=== PATIENT | female | born 1980 | race Caucasian/White ===

== ENCOUNTER 2017-10-12 14:46 | Emergency (ER) | payer MEDICAID, SELFPAY ==
[2017-10-12 14:48] VITALS: BP 77/32; PULSE 67; RESP 15; TEMP 36.4; O2SAT 97; BMI 36.6
[2017-10-12 15:17] VITALS: BP 101/70; PULSE 86; RESP 17; O2SAT 99
--- NOTE | 2017-10-12 15:45 | CT_ITS ---
CT Abdomen And Pelvis W/ Contrast INDICATION: N/V X COUPLE DAYS COMPARISON: None TECHNIQUE: Axial CT imaging of the abdomen and pelvis with IV contrast. Coronal and sagittal reformatted images. Radiation dose optimization technique applied. 100 mL of Isovue-300 were given intravenously. FINDINGS: Visualized lung bases are clear. The heart size is normal. The liver and spleen are normal in size and demonstrate homogeneous enhancement. The gallbladder is surgically absent. The kidneys enhance contrast symmetrically bilaterally and are without evidence of hydronephrosis. The bowel loops are nondistended. The appendix appears to be surgically absent. The distal colon is collapsed. The urinary bladder is unremarkable. There is no evidence of free air or free fluid. The osseous structures are age appropriate. CT/Abdomen/Pelvis W IV Cont ONLY IMPRESSION: No convincing CT evidence of acute intra-abdominal or pelvic pathology. at 1742 Reported and signed by: Frieda Mora MD Electronically Signed: Frieda Mora MD at 16:40 EST Tel , Service support ,
--- NOTE | 2017-10-12 15:49 | ED.DCSUM_ITS ---
- ER Visit Summary Date of Service: 10/12/17 Chief Complaint: Nausea and vomiting History of Present Illness: The patient is a 37 F who presents for 2 days of nausea, vomiting and foul-smelling flatus and stool. Patient's timeline given is very conflicting, with patient initially stating symptoms have been present for 2 days but then discussing treatment she did last week for these symptoms. She endorses hot flashes but denies fever. She has vomited 4-5 times total. She states her stool is very foul-smelling but it alternates between formed and loose. She states she was on Flagyl a few weeks ago for a UTI. She also endorses her ribs hurting on the left. She denies cough or congestion, no chest pain. History of diverticulitis, diabetes and hypothyroidism. Physical Examination: Vital signs: afebrile, hemodynamically stable, no hypoxia on room air General: well nourished, well developed, in no distress Skin: warm, dry, no rash, no pallor HEENT: normocephalic and atraumatic; PERRL, EOMI, moist mucous membranes Cardiovascular: regular rate and rhythm without murmurs, no peripheral edema, 2 + pulses all distal extremities Respiratory: No increased work of breathing, lungs are clear to auscultation bilaterally, no rales, rhonchi or wheezing Abdominal: Abdomen is soft, upper quadrant tenderness with normoactive bowel sounds, no guarding or rebound, no masses MSK: Moves all extremities, no deformities, normal strength Neuro: Awake and alert, oriented ?4. No facial droop, sensation and motor function intact and symmetric Test Results: Abnormal Lab Results 10/12/17 10/12/17 10/12/17 14:53 16:15 16:15 WBC 10.1 RBC 4.23 Hgb 13.5 Hct 38.5 MCV 91.0 MCH 31.9 MCHC 35.1 RDW 12.2 RDW Differential 39.8 Plt Count 319 MPV 10.7 Immature Gran % (Auto) 0.300 Neut % (Auto) 70.0 Lymph % (Auto) 18.2 L [place] % (Auto) 4.2 Eos % (Auto) 6.8 H Baso % (Auto) 0.5 Absolute Neuts (auto) 7.1 Absolute Lymphs (auto) 1.84 Total Counted Not Reportable Sodium 135 L Potassium 4.9 Chloride 103 Carbon Dioxide 21.0 Anion Gap 11 BUN 15 Creatinine 0.89 Estim Creat Clear Calc 69.11 Est GFR (MDRD) Af Amer 93 Est GFR (MDRD) Non-Af 76 BUN/Creatinine Ratio 16.9 Glucose 294 H Calcium 9.4 Total Bilirubin 0.50 AST 27 ALT 31 Alkaline Phosphatase 120 H Troponin I < 0.02 Total Protein 8.7 H Albumin 4.2 Globulin 4.5 H Albumin/Globulin Ratio 0.9 Lipase 135 Serum , Qual Urine Color Yellow Urine Clarity Cloudy Urine pH 5.0 Ur Specific [place] 1.015 Urine Protein 100 H Urine Glucose (UA) 1000 H Urine Ketones 15 H Urine Occult Blood 50 H Urine Nitrite Negative Urine Bilirubin Negative Urine Urobilinogen Normal Ur Leukocyte Esterase 500 H Urine RBC 0-5 SEEN Urine WBC 25-50 SEEN Ur Squamous Epith Cells 10-25 SEEN Urine Bacteria 1+ Urine Mucus 0 SEEN Urine Yeast 2+ 10/12/17 16:15 WBC RBC Hgb Hct MCV MCH MCHC RDW RDW Differential Plt Count MPV Immature Gran % (Auto) Neut % (Auto) Lymph % (Auto) [place] % (Auto) Eos % (Auto) Baso % (Auto) Absolute Neuts (auto) Absolute Lymphs (auto) Total Counted Sodium Potassium Chloride Carbon Dioxide Anion Gap BUN Creatinine Estim Creat Clear Calc Est GFR (MDRD) Af Amer Est GFR (MDRD) Non-Af BUN/Creatinine Ratio Glucose Calcium Total Bilirubin AST ALT Alkaline Phosphatase Troponin I Total Protein Albumin Globulin Albumin/Globulin Ratio Lipase Serum , Qual NEGATIVE Urine Color Urine Clarity Urine pH Ur Specific [place] Urine Protein Urine Glucose (UA) Urine Ketones Urine Occult Blood Urine Nitrite Urine Bilirubin Urine Urobilinogen Ur Leukocyte Esterase Urine RBC Urine WBC Ur Squamous Epith Cells Urine Bacteria Urine Mucus Urine Yeast Emergency Department Course and Treatment: Chart review shows patient had 3 visits in early September for the same complaint. At that time she was started on Flagyl for treatment of colitis. She was also put on Zofran at that time. C. difficile was ordered for this visit, but patient had no bowel movements in the emergency department. Because of LUQ pain, chest pain workup included. Workup showed no leukocytosis, hyperglycemia, no electrolyte derangements, no hepatic derangements, normal lipase, urine positive for infection. negative. Troponin negative. EKG showed no ischemic changes. CT of the abdomen pelvis showed no diverticulitis or other acute process. On reevaluation patient had some improvement. We discussed that there were no acute findings that warranted admission or surgical intervention at this time. Patient was given a prescription for nitrofurantoin for treatment of her UTI. She was also given prescription for Bentyl and Zofran. She was discharged home with return precautions. Treatment Plan: [] Disposition: [] Impression: UTI, abdominal pain This note was generated with [employer] dictation software. It may contain incorrect words, spelling, and punctuation that were not noted in review of the chart prior to signing ED Disposition - Plan for ED Patient: Disposition: Home or Assisted Living Chief Complaint: Nausea/Vomiting Instructions: ED Diet Vomiting Diarrhea, ED UTI Cystitis Female Prescriptions: Ondansetron [Zofran Odt] 4 mg PO Q8H PRN PRN #10 tab PRN Reason: Nausea Dicyclomine HCl [Bentyl] 20 mg PO TIDAC PRN #20 cap PRN Reason: abdominal pain Nitrofurantoin Macrocrystal [Nitrofurantoin] 100 mg PO BID #14 cap Referrals: [facility] Doctor,Out of [Primary Care Provider] - 3-5 Days if not improving Additional Instructions: Please use the Zofran as needed for nausea and the Bentyl for abdominal cramps. Take the antibiotic nitrofurantoin for your UTI. Take the entire prescription even if you feel better before it is gone. Your abdominal CT scan showed no abnormalities. Your labs were normal. Your glucose is a little high so please continue your insulin and diabetic regimen. If you have any worsening of your condition or any further concerns, please come back to the emergency department immediately for another evaluation.
[2017-10-12 16:26] LABS: Absolute Lymphocyte Count 1.84 X10^3/ul (0.83-4.51); Absolute Neutrophil Count 7.1 X10^3/uL (2.0-7.7); Basophil# 0.05 X10^3/uL; Basophil% 0.5 % (0-1); Eosinophil# 0.69 X10^3/uL; Eosinophils% 6.8 % (0-5); Hematocrit 38.5 % (37-47); Hemoglobin 13.5 g/dl (12.0-15.0); Lymphocyte # 1.84 X10^3/ul (4.0); Lymphocyte % 18.2 % (19-41); Mean Corp Hgb Conc 35.1 g/gl (32-36); Mean Corpuscular Hgb 31.9 pg (27.0-32.0); Mean Platelet Vol. 10.7 fl (6.2-12.0); Monocyte# 0.43 X10^3/uL; Monocyte% 4.2 % (0-10); Neutrophil # 7.08 X10^3/uL (2.7-7.7); Platelet Count 319 K/mm3 (150-450); RBC Distribution Width CV 12.2 % (11.6-14.6); RBC Distribution Width SD 39.8 fl (35.1-43.9); Red Blood Count 4.23 M/mm3 (4.2-5.4); White Blood Count 10.1 K/mm3 (4.4-11.0)
[2017-10-12] MEDS: 0.9% Normal Saline 1,000 ML 1000 ML IV (16:26)
[2017-10-12] MEDS: Ondansetron 4 MG/2 ML Vial IV (16:26)
[2017-10-12 16:31] LABS: POSITIVE COUNT NO; POSITIVE DIFFERENTIAL NO; POSITIVE MORPHOLOGY NO
[2017-10-12 16:52] LABS: ALB/GLOB Ratio 0.9 RATIO (0.9-2.4); AST(SGOT) 27 U/L (15-37); Alanine Aminotransfer ALT/SGPT 31 U/L (13-56); Albumin, Serum 4.2 g/dL (3.2-5.0); Alkaline Phosphatase 120 U/L (45-117); Anion Gap 11 (5-15); BUN 15 mg/dL (7-18); BUN/Creat Ratio 16.9 RATIO (10-20); Calcium,Total 9.4 mg/dL (8.5-10.1); Chloride 103 mmol/L (98-107); Creatinine, Serum 0.89 mg/dL (0.55-1.02); EST Glomerular Filtration Rate 76 mL/min (>60); Est Glom Filt Rate - Afr Amer 93 mL/min (>60); Estimated Creatinine Clearance 69.11 ml/min; Globulin 4.5 g/dL (2.2-4.2); Glucose 294 mg/dL (74-106); Lipase 135 U/L (73-393); Potassium 4.9 mmol/L (3.5-5.1); Pregnancy, Serum, hCG Quali. NEGATIVE Negative (0-9 Nonpreg); Protein, Total 8.7 g/dL (6.4-8.2); Sodium Level 135 mmol/L (136-145)
[2017-10-12 17:16] VITALS: BP 108/67; PULSE 84; RESP 16; O2SAT 98
--- NOTE | 2017-10-12 17:57 | NURSING ---
called lab regarding urine testing. lab located urine with white labels and to run at this time.
[2017-10-12 17:59] LABS: Mucous, Urine 0 SEEN /hpf (<or=2+)
--- NOTE | 2017-10-12 17:59 | EKG12_ITS ---
Test Reason : VOMITING Blood Pressure : / mmHG Vent. Rate : 088 BPM Atrial Rate : 088 BPM P-R Int : 162 ms QRS Dur : 080 ms QT Int : 394 ms P-R-T Axes : 030 -32 003 degrees QTc Int : 476 ms Normal sinus rhythm Left axis deviation Inferior infarct , age undetermined Anterior infarct , age undetermined Abnormal ECG Confirmed by ROHAN DELGADILLO, CHESTER ([id number]), editor in chief DION MCNULTY ([id number] on 10/15/2017 1:46:50 PM Referred By: MANUELA Confirmed By:CHESTER MADRIGAL MD
[2017-10-12 18:26] LABS: Color, Urine Yellow (Yellow); Glucose, Dipstick 1000 mg/dl (Normal); Ketone-Dipstick 15 mg/dl (Negative); Leukocyte Esterase-Dipstick 500 /ul (Negative); Nitrite-Dipstick Negative (Negative); Occult Blood-Urine 50 /ul (Negative); Protein-Dipstick 100 mg/dl (Negative); Specific Gravity, Urine 1.015 (1.002-1.030); Urine Bilirubin Dipstick Negative (Negative); Urine Clarity Cloudy (Clear); Urine Urobilinogen Normal (Normal)
[2017-10-12 18:34] LABS: Bacteria 1+ /hpf (None Seen); White Blood Cells 25-50 SEEN /hpf (0-5); Yeast-Urine 2+ /hpf (None Seen)
[2017-10-12 18:35] LABS: Red Blood Cells-Urine 0-5 SEEN /hpf (0-5); Squamous Epithelial Cells - UA 10-25 SEEN /hpf (5-10)
--- NOTE | 2017-10-12 18:59 | DCINST.ED_ITS ---
ED Disposition - Plan for ED Patient: Disposition: Home or Assisted Living Chief Complaint: Nausea/Vomiting Instructions: ED Diet Vomiting Diarrhea, ED UTI Cystitis Female Prescriptions: Ondansetron [Zofran Odt] 4 mg PO Q8H PRN PRN #10 tab PRN Reason: Nausea Dicyclomine HCl [Bentyl] 20 mg PO TIDAC PRN #20 cap PRN Reason: abdominal pain Nitrofurantoin Macrocrystal [Nitrofurantoin] 100 mg PO BID #14 cap Referrals: [facility] Doctor,Out of [Primary Care Provider] - 3-5 Days if not improving Additional Instructions: Please use the Zofran as needed for nausea and the Bentyl for abdominal cramps. Take the antibiotic nitrofurantoin for your UTI. Take the entire prescription even if you feel better before it is gone. Your abdominal CT scan showed no abnormalities. Your labs were normal. Your glucose is a little high so please continue your insulin and diabetic regimen. If you have any worsening of your condition or any further concerns, please come back to the emergency department immediately for another evaluation.
[2017-10-12 19:09] VITALS: BP 110/74; PULSE 79; RESP 18; TEMP 36.1; O2SAT 99
== END 2017-10-12 19:10 | disposition home or self-care (01) ==
PROVIDERS: Emergency Provider Emergency Medicine
DX: N39.0 Urinary tract infection, site not specified (principal); R10.10 Upper abdominal pain, unspecified; E11.9 Type 2 diabetes mellitus without complications; E03.9 Hypothyroidism, unspecified; E66.9 Obesity, unspecified; Z79.4 Long term (current) use of insulin; Z79.899 Other long term (current) drug therapy
CPT/HCPCS: 74176; 80053; 81001; 83690; 84484; 84703; 85025; 87086; 87088; 93005; 96361; 96374; 96375; 99284; J7030; Q9967; J2405

== ENCOUNTER 2017-11-09 19:30 | Emergency (ER) | payer MEDICAID, SELFPAY ==
[2017-11-09 19:31] VITALS: BP 103/66; PULSE 108; RESP 18; TEMP 37.4; O2SAT 97; BMI 41.5
[2017-11-09 21:11] LABS: Mucous, Urine 0 SEEN /hpf (<or=2+); Red Blood Cells-Urine 0 SEEN /hpf (0-5)
--- NOTE | 2017-11-09 21:26 | ED.VISSUMM ---
- ER Visit Summary Date of Service: 11/09/17 Chief Complaint: Low back pain and fever. I think I have another UTI History of Present Illness: The patient is a 37 F history of insulin-dependent diabetes and hypothyroidism. She has had prior UTIs. Also prior appendectomy and cholecystectomy. Patient states that he has had low back pain and a fever since last night. With dark urine. Associated nausea and vomiting. ?4. No diarrhea. Her last menstrual period was October 14. She denies any vaginal bleeding or discharge. She denies any cough, shortness of breath or chest pain. She denies any abdominal pain. Physical Examination: Vital signs are stable febrile. Temperature 99.3. Pulse ox 97% on room air no signs of hypoxia. She is in no distress. She does not look septic or toxic. H EENT exam unremarkable moist wheeze membranes. Neck nontender no lymphadenopathy. Lungs clear to auscultation bilaterally. Heart regular rhythm rate about 105 no murmur. Abdomen is soft and nontender. Normal bowel sounds no peritoneal signs. Nondistended. She is moving all 4 extremities are neurovascularly intact. Back exam there is no ecchymosis or bruising. No spine tenderness. She complains of low back pain. Neurologically she is awake alert without any focal motor or sensory deficits. Test Results: Urinalysis shows contamination but there are 50 to white cells and 1+ bacteria a urine culture will be sent this will be treated as UTI. They are also positive nitrates. Emergency Department Course and Treatment: Patient treated with 1 p.o. [place]. Treatment Plan: Allergies including penicillin and Bactrim and Cipro she will be placed on Keflex 500 4 times daily for 10 days. Follow-up with her primary care physician. Return if worse. Plenty of fluids and rest. Tylenol Motrin for pain. Disposition: discharge Impression: Acute UTI / Pyelonephritis This note was generated with [employer] dictation software. It may contain incorrect words, spelling, and punctuation that were not noted in review of the chart prior to signing ED Disposition - Plan for ED Patient: Chief Complaint: Complaint Referrals: [facility] Doctor,Out of [Primary Care Provider] -
[2017-11-09 21:36] LABS: Color, Urine Yellow (Yellow); Glucose, Dipstick 1000 mg/dl (Normal); Leukocyte Esterase-Dipstick 500 /ul (Negative); Nitrite-Dipstick Positive (Negative); Occult Blood-Urine 25 /ul (Negative); Protein-Dipstick 100 mg/dl (Negative); Urine Clarity Cloudy (Clear); Urine Urobilinogen 1 mg/dl (Normal)
[2017-11-09] MEDS: Ondansetron ODT 4 MG Tablet PO ×2 (21:41→22:40)
[2017-11-09 21:42] VITALS: PULSE 100; RESP 18; O2SAT 97
[2017-11-09 21:56] LABS: Urine Bilirubin Dipstick 1 mg/dL (Negative)
[2017-11-09] MEDS: HYDROcodone Bitartrate/Apap 5/325 Tablet PO ×2 (21:56→22:40)
[2017-11-09 21:58] LABS: Ketone-Dipstick 150 mg/dl (Negative); Squamous Epithelial Cells - UA 10-25 SEEN /hpf (5-10); White Blood Cells 50-100 SEEN /hpf (0-5)
[2017-11-09 21:59] LABS: Bacteria 1+ /hpf (None Seen); Yeast-Urine 1+ /hpf (None Seen)
--- NOTE | 2017-11-09 22:21 | ED.DEP ---
ED Disposition - Plan for ED Patient: Disposition: Home or Assisted Living Chief Complaint: Complaint Instructions: Discharge Instructions for Pyelonephritis, ED Kidney Infec Female Prescriptions: Cephalexin [Keflex] 500 mg PO Q6 #40 cap Referrals: [facility] Doctor,Out of [Primary Care Provider] - 3-5 Days Additional Instructions: Plenty fluids and rest. Tylenol and Motrin for pain. You have a urinary tract infection and may be early pyelonephritis meaning that the infection is in your kidneys. He will be written for an antibiotic called Keflex which will take 4 times a day for 10 days. A urine culture was sent. He will need to follow-up your primary care physician in next 3-5 days to ensure your improving. If you are feeling a lot worse need to return to the ER.
--- NOTE | 2017-11-09 22:25 | DCINST.ED_ITS ---
ED Disposition - Plan for ED Patient: Disposition: Home or Assisted Living Chief Complaint: Complaint Instructions: Discharge Instructions for Pyelonephritis, ED Kidney Infec Female Prescriptions: Cephalexin [Keflex] 500 mg PO Q6 #40 cap Referrals: [facility] Doctor,Out of [Primary Care Provider] - 3-5 Days Additional Instructions: Plenty fluids and rest. Tylenol and Motrin for pain. You have a urinary tract infection and may be early pyelonephritis meaning that the infection is in your kidneys. He will be written for an antibiotic called Keflex which will take 4 times a day for 10 days. A urine culture was sent. He will need to follow-up your primary care physician in next 3-5 days to ensure your improving. If you are feeling a lot worse need to return to the ER.
[2017-11-09] MEDS: Cephalexin 250 MG Capsule 500 MG PO (22:39)
[2017-11-09 22:45] VITALS: BP 104/72; PULSE 81; RESP 17; O2SAT 95
--- NOTE | 2017-11-14 15:56 | ED.RN ---
CALLED PT TO NOTIFY OF + URINE CX RESULTS AND NEED FOR ATB CHANGE. SPOKE WITH PT, WHOM STS THAT SHE IS STILL HAVING SOME DIFFICULTY WITH NAUSEA AND VOMITING. ENCOURAGED PT TO F/U WITH PCP, OR RETURN TO ED IF SHE NEEDS TO. DOXYCYCLINE 100 MG PO BID X7 DAYS CALLED INTO [facility], PER PT REQUEST.
== END 2017-11-09 22:54 | disposition home or self-care (01) ==
PROVIDERS: Emergency Provider Emergency Medicine
DX: N10 Acute pyelonephritis (principal); E11.9 Type 2 diabetes mellitus without complications; E03.9 Hypothyroidism, unspecified; Z87.440 Personal history of urinary (tract) infections; Z79.4 Long term (current) use of insulin; Z79.899 Other long term (current) drug therapy
CPT/HCPCS: 81001; 87077; 87086; 87088; 87186; 99283

== ENCOUNTER 2017-11-10 14:51 | Emergency (ER) | payer MEDICAID, SELFPAY ==
[2017-11-10 14:52] VITALS: BP 159/93; PULSE 106; RESP 16; TEMP 36.6; O2SAT 97; BMI 41.1
--- NOTE | 2017-11-10 16:42 | ED.DCSUM_ITS ---
- ER Visit Summary Date of Service: 11/10/17 Chief Complaint: Nausea and vomiting History of Present Illness: The patient is a 37 F who presents with nausea and vomiting that became worse today. Patient was seen here yesterday and was diagnosed with pyelonephritis. Patient states she was discharged home with antibiotics, anti-emetics, and analgesics. Patient was given a prescription for Keflex. Patient states she was given a dose here in the emergency department last night but vomited after she was discharged. Patient states she attempted to take an antibiotic at home and promptly vomited that back up as well. Patient states she took promethazine at home with no relief. Patient denies any fevers or chills. Patient denies any melena or hematochezia. Patient admits to some mild diarrhea. Patient states she has pain in her back and left upper quadrant there is a constant throbbing. Patient admits to subjective fevers. Physical Examination: Vital signs are stable. Patient is afebrile. Patient is in no acute distress. Oral mucosa is pink and moist. Heart was regular rate and rhythm. Lungs are clear and equal bilaterally. Abdomen is soft. Bowel sounds are normal. There is no tenderness, rebound, or guarding noted. Cranial nerves II through XII are intact. There are no focal motor or sensory deficits noted. Test Results: CBC and metabolic profile were obtained and were within normal limits with the exception of a elevated glucose of 370. Emergency Department Course and Treatment: She was given Zofran ODT. Patient was also given Keflex orally here. Patient was able to keep this down. Patient was given an injection of morphine here. Patient was instructed to follow-up with her primary care physician in 7-10 days. Patient understood and was agreeable with the plan. All questions were answered. Disposition: Discharge home Impression: Pyelonephritis This note was generated with [employer] dictation software. It may contain incorrect words, spelling, and punctuation that were not noted in review of the chart prior to signing ED Disposition - Plan for ED Patient: Disposition: Home or Assisted Living Chief Complaint: Nausea/Vomiting Diagnosis: Pyelonephritis Instructions: ED Nausea Vomiting Referrals: [facility] Doctor,Out of [Primary Care Provider] -
--- NOTE | 2017-11-10 17:20 | ED.RN ---
DELAY IN MEDICATING D/T DIFFICULT IV STICK.
[2017-11-10 17:49] LABS: ALB/GLOB Ratio 0.8 RATIO (0.9-2.4); AST(SGOT) 28 U/L (15-37); Alanine Aminotransfer ALT/SGPT 31 U/L (13-56); Albumin, Serum 3.5 g/dL (3.2-5.0); Alkaline Phosphatase 127 U/L (45-117); Anion Gap 11 (5-15); BUN 11 mg/dL (7-18); BUN/Creat Ratio 14.5 RATIO (10-20); Calcium,Total 8.8 mg/dL (8.5-10.1); Chloride 99 mmol/L (98-107); Creatinine, Serum 0.76 mg/dL (0.55-1.02); EST Glomerular Filtration Rate 91 mL/min (>60); Est Glom Filt Rate - Afr Amer 110 mL/min (>60); Estimated Creatinine Clearance 80.94 ml/min; Globulin 4.3 g/dL (2.2-4.2); Glucose 370 mg/dL (74-106); Lipase 244 U/L (73-393); Potassium 3.6 mmol/L (3.5-5.1); Protein, Total 7.8 g/dL (6.4-8.2); Sodium Level 134 mmol/L (136-145)
[2017-11-10] MEDS: Ondansetron ODT 4 MG Tablet PO (18:00)
[2017-11-10] MEDS: Cephalexin 250 MG Capsule 500 MG PO (18:00)
[2017-11-10 18:04] LABS: Absolute Lymphocyte Count 1.23 X10^3/ul (0.83-4.51); Absolute Neutrophil Count 5.1 X10^3/uL (2.0-7.7); Basophil# 0.03 X10^3/uL; Basophil% 0.4 % (0-1); Differential Indicated SCAN CRITERIA MET; Eosinophil# 0.13 X10^3/uL; Eosinophils% 1.8 % (0-5); Hematocrit 34.1 % (37-47); Hemoglobin 11.4 g/dl (12.0-15.0); Lymphocyte # 1.23 X10^3/ul (4.0); Lymphocyte % 17.4 % (19-41); Mean Corp Hgb Conc 33.4 g/gl (32-36); Mean Corpuscular Hgb 30.8 pg (27.0-32.0); Mean Corpuscular Volume 92.2 fL (81-99); Mean Platelet Vol. 10.2 fl (6.2-12.0); Monocyte# 0.58 X10^3/uL; Monocyte% 8.2 % (0-10); Neutrophil # 5.06 X10^3/uL (2.7-7.7); Neutrophil % 71.9 % (47-70); POSITIVE COUNT YES; POSITIVE DIFFERENTIAL NO; POSITIVE MORPHOLOGY NO; Platelet Count 254 K/mm3 (150-450); RBC Distribution Width CV 12.7 % (11.6-14.6); RBC Distribution Width SD 42.7 fl (35.1-43.9); White Blood Count 7.1 K/mm3 (4.4-11.0)
--- NOTE | 2017-11-10 18:05 | ED.RN ---
PT HAS HAD NO N/V WHILE HERE IN ED.
[2017-11-10 18:20] LABS: Differential Comment SCANNED
[2017-11-10 18:57] VITALS: BP 131/77; PULSE 69; RESP 15; O2SAT 98
== END 2017-11-10 18:57 | disposition home or self-care (01) ==
PROVIDERS: Emergency Provider Emergency Medicine
DX: N12 Tubulo-interstitial nephritis, not specified as acute or chronic (principal); R11.2 Nausea with vomiting, unspecified; E11.9 Type 2 diabetes mellitus without complications; E03.9 Hypothyroidism, unspecified; Z79.2 Long term (current) use of antibiotics; Z79.4 Long term (current) use of insulin; Z79.899 Other long term (current) drug therapy
CPT/HCPCS: 80053; 83690; 85025; 96372; 99282; J7030; A4216

== ENCOUNTER 2017-11-16 17:36 | Inpatient (IN) | payer MEDICAID, SELFPAY ==
[2017-11-16 17:37] VITALS: BP 170/115; PULSE 118; RESP 16; TEMP 36.7; O2SAT 97; BMI 41.1
--- NOTE | 2017-11-16 18:06 | CT_ITS ---
STUDY: CT ABDOMEN AND PELVIS WITHOUT CONTRAST REASON FOR EXAM: Female, 37 years old. Nausea and vomiting RADIATION DOSAGE (If Supplied By Facility): CTDIvol = ( 23.45 ) mGy, DLP = ( 1300.60 ) mGycm TECHNIQUE: Transaxial images were obtained from the dome of the diaphragm to the symphysis pubis without oral contrast, and without intravenous contrast. Sagittal and coronal images were reconstructed. Individualized dose optimization techniques were used for this CT. COMPARISON: Previous study of October 12, 2017 FINDINGS: The visualized lung bases are unremarkable. The visualized portions of the heart are within normal limits. Normal liver. There are surgical clips in the gallbladder fossa consistent with a prior cholecystectomy. Normal spleen. Normal pancreas. Normal bilateral adrenal glands. Normal right kidney. Normal left kidney. There is a small hiatal hernia. Normal small intestine. Normal colon. There are surgical clips in the region of the appendix consistent with a prior appendectomy. Normal abdominal aorta. The IVC is decreased in caliber and flattened which may be indicative of volume depletion. Normal retroperitoneum. Normal urinary bladder. The uterus is unremarkable. There is a small fat-containing structure of the right adnexa measuring 1.7 cm consistent with ovarian dermoid. There is a small umbilical hernia containing fat. Orthopedic hardware is seen in the left hemipelvis. The visualized thoracolumbar spine appears normal. CT/Abdomen/Pelvis without Cont IMPRESSION: 1. Status post cholecystectomy and appendectomy. 2. The IVC is decreased in caliber and flattened which may be indicative of volume depletion. 3. There is a fat-containing structure in the right adnexa measuring 1.7 cm consistent with an ovarian dermoid. 4. Small fat-containing umbilical hernia. 5. Orthopedic hardware seen in the left hemipelvis. 6. There is no free intra-abdominal or intrapelvic air, fluid, or inflammatory process. Electronically Signed: Brennon Barney MD at 20:28 EDT , Service support ,
[2017-11-16 18:40] LABS: Mucous, Urine 0 SEEN /hpf (<or=2+)
[2017-11-16 18:41] LABS: Color, Urine Yellow (Yellow); Glucose, Dipstick 1000 mg/dl (Normal); Leukocyte Esterase-Dipstick 100 /ul (Negative); Nitrite-Dipstick Negative (Negative); Occult Blood-Urine 150 /ul (Negative); Protein-Dipstick 500 mg/dl (Negative); Specific Gravity, Urine 1.015 (1.002-1.030); Urine Bilirubin Dipstick Negative (Negative); Urine Clarity Sl. Cloudy (Clear); Urine Urobilinogen Normal (Normal)
[2017-11-16 18:48] LABS: Ketone-Dipstick 150 mg/dl (Negative)
[2017-11-16 18:51] LABS: Red Blood Cells-Urine 5-10 SEEN /hpf (0-5); White Blood Cells 5-10 SEEN /hpf (0-5)
[2017-11-16 18:52] LABS: Amorphous Sediment 1+ URATE; Bacteria RARE /hpf (None Seen); Squamous Epithelial Cells - UA 10-25 SEEN /hpf (5-10); Yeast-Urine 1+ /hpf (None Seen)
[2017-11-16 19:43] VITALS: BP 156/94; PULSE 101; O2SAT 97
[2017-11-16 20:11] LABS: Absolute Lymphocyte Count 1.18 X10^3/ul (0.83-4.51); Absolute Neutrophil Count 10.1 X10^3/uL (2.0-7.7); Basophil# 0.03 X10^3/uL; Basophil% 0.3 % (0-1); Eosinophil# 0.04 X10^3/uL; Eosinophils% 0.3 % (0-5); Hematocrit 38.1 % (37-47); Lymphocyte # 1.18 X10^3/ul (4.0); Mean Corp Hgb Conc 34.1 g/gl (32-36); Mean Corpuscular Hgb 31.4 pg (27.0-32.0); Monocyte# 0.41 X10^3/uL; Monocyte% 3.5 % (0-10); Neutrophil # 10.08 X10^3/uL (2.7-7.7); Neutrophil % 85.2 % (47-70); Platelet Count 416 K/mm3 (150-450); RBC Distribution Width CV 13.2 % (11.6-14.6); RBC Distribution Width SD 43.6 fl (35.1-43.9); Red Blood Count 4.14 M/mm3 (4.2-5.4); White Blood Count 11.8 K/mm3 (4.4-11.0)
[2017-11-16 20:12] LABS: POSITIVE COUNT NO; POSITIVE DIFFERENTIAL NO; POSITIVE MORPHOLOGY NO
[2017-11-16] MEDS: 0.9% Normal Saline 1,000 ML 150 ML IV (20:26)
[2017-11-16] MEDS: Ondansetron 4 MG/2 ML Vial IV (20:27)
[2017-11-16 20:33] LABS: Anion Gap 16 (5-15); BUN 9 mg/dL (7-18); Potassium 4.6 mmol/L (3.5-5.1)
[2017-11-16 20:50] LABS: BUN/Creat Ratio 17.9 RATIO (10-20); Chloride 108 mmol/L (98-107); EST Glomerular Filtration Rate 147 mL/min (>60); Est Glom Filt Rate - Afr Amer 177 mL/min (>60); Estimated Creatinine Clearance 123.02 ml/min; Glucose 237 mg/dL (74-106); Sodium Level 141 mmol/L (136-145)
--- NOTE | 2017-11-16 21:31 | ED.DCSUM_ITS ---
- ER Visit Summary Date of Service: 11/16/17 Chief Complaint: Nausea and vomiting, UTI History of Present Illness: The patient is a 37 F who was diagnosed with UTI and pyelonephritis last week. Patient reports nausea and vomiting since that time states she has not been able to keep anything down including her antibiotics. Per review of records patient was started on Keflex and then switched to doxycycline after culture returned. Patient states that even after switching antibiotics she has been vomiting and cannot keep the medicine down. She complains of left flank pain. She has had prior appendectomy and cholecystectomy. She reports a bit of fever but was not measured. Physical Examination: Vital signs on arrival include blood pressure 170/115, temperature 98.1, heart rate 118, respiratory rate 16, pulse ox 97% on room air. Patient is obese female sitting upright in bed. She is nontoxic appearing. Head neck examination is grossly unremarkable. Heart is tachycardic and regular. Lung sounds are grossly clear. Abdomen is soft, obese, with mild diffuse tenderness throughout. There is no guarding or rebound. Hypoactive bowel sounds are noted. Test Results: CBC was a white count 11.8 with 85% neutrophils. Chemistry studies reveal glucose of 237. Her bicarb is low at 20. Urinalysis shows 150 ketones, 5-10 white blood cells, 5-10 red blood cells, 10-25 epithelial cells, and rare bacteria. CT flank reveals chronic changes. IVC appears to be decreased in caliber and flattened which may be indicative of volume depletion. Emergency Department Course and Treatment: Patient is an extremely difficult IV stick. IV was established by nursing and the patient's right wrist but blood was not able to be drawn. Lab presented and was able to only get CBC and BMP from her fingers. The other ER physician working [facility] was able to establish a 20-gauge line in the left forearm under ultrasound guidance. One set of blood cultures were able to be drawn from this. She was given morphine, Phenergan, Zofran, and IV fluids. Urine culture was also sent. At this time I feel the patient needs IV hydration and nausea control. She will be given a dose of IV Levaquin as she has tolerated this antibiotic in the past and urine culture shows her Klebsiella infection is sensitive to this. Treatment Plan: [] Disposition: Admit Impression: 1. Flank pain with partially treated pyelonephritis 2. Vomiting, improved This note was generated with [employer] dictation software. It may contain incorrect words, spelling, and punctuation that were not noted in review of the chart prior to signing ED Disposition - Plan for ED Patient: Chief Complaint: Nausea/Vomiting Referrals: Care Physician,No Primary [Primary Care Provider] -
--- NOTE | 2017-11-16 21:42 | PCM.HP.STD ---
Problem List (1) Hip pain, chronic Status: Chronic Qualifiers: Laterality: left Qualified Code(s): M25.552 - Pain in left hip; G89.29 - Other chronic pain (2) Chronic pain Status: Chronic Qualifiers: Chronic pain type: other chronic postprocedural pain Qualified Code(s): G89.28 - Other chronic postprocedural pain (3) Morbid obesity with BMI of 40.0-44.9, adult Status: Chronic (4) Hypothyroidism Status: Chronic Qualifiers: Hypothyroidism type: unspecified Qualified Code(s): E03.9 - Hypothyroidism, unspecified (5) Diabetes mellitus, type II Status: Chronic Qualifiers: Diabetes mellitus intermediate designer insulin use: with intermediate designer use Diabetes mellitus complication status: with unspecified complications Qualified Code(s): E11.8 - Type 2 diabetes mellitus with unspecified complications; Z79.4 - long term care administrator (current) use of insulin (6) UTI (urinary tract infection) Status: Acute (7) DKA (diabetic ketoacidoses) Status: Chronic Qualifiers: Diabetes mellitus type: type 2 Diabetes mellitus complication detail: without coma Qualified Code(s): E11.10 - Type 2 diabetes mellitus with ketoacidosis without coma History of Present Illness Date of Admission: 11/16/17 Chief Complaint: Intractable N/V, recent UTI, unable to take her medications, not taking her insulin The patient is a 37 y/o F w/ PMHx: Morbid Obesity, Chronic Hip Pain, Diabetes mellitus type II, Hypothyroidism, Frequent UTIs who presents to the [facility] ED on 11/16/17 with recent Dx Klebisella UTI/Suspected Pyelonephritis with attempted outpatient treatment oral abx therapy; however, unable to tolerate her medications and noted to have not been able to complete regimen with ongoing nausea, emesis and self admitted failure to take her insulin x 2-3 days secondary to poor oral intake in addition to subjective fevers. In the ED work-up included T 98.1, HR 118, BP 170/115, RR 16, 97% on RA, CBC w/ WBC 11.8, Hgb 13, Plts 416 with L shift, BMP w/ Chl 108, CO2 20, AG 16, BUN/Cr 9/0.50, glucose 237, UA poor sample w/ notable SEC, protein 500, glucose 1000, ketones 150, LE 100, repeat UCx pending although poor sample, Bld Cx per ED pending, CT A/P evident status post cholecystectomy and appendectomy, IVC decreased in caliber and flattened, fat-containing structure right adnexa measuring 1.7 cm consistent with ovarian dermoid, small fat-containing umbilical hernia, left hemipelvis orthopedic hardware, no acute process otherwise noted. In the ED patient administered NS, phenergan, zofran, GI cocktail, morphine, levaquin. Past Medical History Past Medical History (Chronic Problems): Chronic Problems Morbid obesity with BMI of 40.0-44.9, adult (Chronic) Hypothyroidism (Chronic) Diabetes mellitus, type II (Chronic) DKA (diabetic ketoacidoses) (Chronic) Hip pain, chronic (Chronic) Chronic pain (Chronic) Allergies amoxicillin Allergy (Verified 11/16/17 17:40) Hives ciprofloxacin [From Cipro] Allergy (Verified 11/16/17 17:40) Hives ciprofloxacin HCl [From Cipro] Allergy (Verified 11/16/17 17:40) Hives cyclobenzaprine HCl [From Flexeril] Allergy (Verified 11/16/17 17:40) Hives egg Allergy (Verified 11/16/17 17:40) Anaphylaxis WHEN MIXED IN MEDICATION ONLY PER PT REPORT naproxen [From Naprosyn] Allergy (Verified 11/16/17 17:40) Hives tramadol Allergy (Verified 11/16/17 17:40) Rash ketorolac tromethamine [From Toradol] Adverse Reaction (Verified 11/16/17 17:40) Other sulfamethoxazole [From Bactrim] Adverse Reaction (Verified 11/16/17 17:40) Hives trimethoprim [From Bactrim] Adverse Reaction (Verified 11/16/17 17:40) Hives Home Medications: Ambulatory Orders Medication Instructions Recorded Levothyroxine [Synthroid] 125 mcg PO DAILY 10/05/15 Insulin Aspart [Novolog Flexpen] 6 unit SC TID 02/04/16 Insulin Detemir [Levemir (BKC)] 20 units SC QHS 02/04/16 Tizanidine HCl [Zanaflex] 4 mg PO Q8H 10/12/17 ProMETHAzine [Phenergan] 25 mg PO Q6H PRN PRN 11/10/17 ProMETHAzine [Phenergan] 25 mg RECTAL Q6H PRN PRN 11/10/17 Surgical History: appendectomy, cholecystectomy, total hip arthroplasty - left, - - BL eye surgery, D+C. 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 Denies: Chills, Weight Change HEENT: Denies: Head Aches, Sinus Congestion, Sinus Drainage Cardiovascular: Denies: Chest Pain, Palpitations Respiratory: Denies: Cough, Shortness of breath at rest, Sputum production Gastrointestinal: Reports: Abdominal Pain, Nausea, Vomiting Genitourinary: Denies: Dysuria Musculoskeletal: Reports: Back Pain, Joint stiffness, Joint swelling, Joint Tenderness. Denies: Joint Pain Skin: Denies: Rash, Wounds Neurological: Denies: Numbness, Tingling, Focal weakness Psychiatric: Denies: Anxiety, Depression, Homicidal Ideations, Suicidal Ideations Hematologic/ Lymphatic: Denies: Easy Bruising, Easy Bleeding VTE Information - Inpt Only VTE Present on Admission: No VTE Mechan Device Prophylaxis: SCD's VTE Pharm Prophylaxis ordered?: Yes Patient Problems: Active and Suspected Problems UTI (urinary tract infection) (Acute) Subjective: Seated upright in the ED bed, fatigued appearing, NAD otherwise. Objective: Physical Examination: General: awake, alert, oriented x 3 and cooperative, seated upright in the ED bed in no apparent distress. Skin: normal color, turgor, no icterus, cyanosis. HEENT: AT/NC, EOMI, PERRLA, dry MM, no carotid bruits or JVD noted, facial hair present. Lungs: CTA bilaterally, moderate effort, mild decrease BL bases, no rales, ronchi or wheezing. Heart: Tachycardic with regular rhythm; no gallop, rub audible. Abdomen: soft, morbidly obese, mild L sided discomfort to palpation and L CVA TTP, ND, normal BS, no HSM although difficult assessment given habitus. Extremities: no cyanosis, clubbing, or edema. Neurological: patient awake, alert, oriented x 3; cognitive function intact; pupils equally reactive to light and accomodation; cranial nerves II-XII grossly normal, moving all 4 extremities, no focal deficits, strength moderately to severely globally decreased secondary to acute presentation. Psychiatric: affect appears fatigued, no acute evidence of depressive or anxiety feelings. - Physical Exam Vital Signs Temp Pulse Resp BP Pulse Ox 98.1 F 101 H 16 156/94 H 97 11/16/17 17:37 11/16/17 19:43 11/16/17 17:37 11/16/17 19:43 11/16/17 19:43 Oxygen Delivery Method Room Air Weight: 225 lb Body Mass Index (BMI) 41.1 Laboratory Tests Past 24 Hrs 11/16/17 11/16/17 11/16/17 18:30 19:54 19:54 WBC 11.8 H RBC 4.14 L Hgb 13.0 Hct 38.1 MCV 92.0 MCH 31.4 MCHC 34.1 RDW 13.2 RDW Differential 43.6 Plt Count 416 MPV 10.0 Immature Gran % (Auto) 0.700 Neut % (Auto) 85.2 H Lymph % (Auto) 10.0 L [place] % (Auto) 3.5 Eos % (Auto) 0.3 Baso % (Auto) 0.3 Absolute Neuts (auto) 10.1 H Absolute Lymphs (auto) 1.18 Total Counted Not Reportable Sodium 141 Potassium 4.6 Chloride 108 H Carbon Dioxide 20.0 L Anion Gap 16 H BUN 9 Creatinine 0.50 L Estim Creat Clear Calc 123.02 Est GFR (MDRD) Af Amer 177 Est GFR (MDRD) Non-Af 147 BUN/Creatinine Ratio 17.9 Glucose 237 H Calcium 9.0 Urine Color Yellow Urine Clarity Sl. Cloudy Urine pH 6.0 Ur Specific [place] 1.015 Urine Protein 500 H Urine Glucose (UA) 1000 H Urine Ketones 150 H Urine Occult Blood 150 H Urine Nitrite Negative Urine Bilirubin Negative Urine Urobilinogen Normal Ur Leukocyte Esterase 100 H Urine RBC 5-10 SEEN Urine WBC 5-10 SEEN Ur Squamous Epith Cells 10-25 SEEN Amorphous Sediment 1+ URATE Urine Bacteria RARE Urine Mucus 0 SEEN Urine Yeast 1+ Assessment/Plan Active and Suspected Problems UTI (urinary tract infection) (Acute) The patient is a 37 y/o F w/ PMHx: Morbid Obesity, Chronic Hip Pain, Diabetes mellitus type II, Hypothyroidism, Frequent UTIs who presents to the [facility] ED on 11/16/17 with recent Dx Giorgi UTI/Suspected Pyelonephritis with attempted outpatient treatment oral abx therapy; however, unable to tolerate her medications and noted to have not been able to complete regimen with ongoing nausea, emesis and self admitted failure to take her insulin x 2-3 days secondary to poor oral intake in addition to subjective fevers. (1) Acute Klebsiella Pneumoniae UTI (Recent ED visit pyelonephritis, no evidence on 11/16/17 CT A/P): UA upon ED evaluation poor sample, UCx 11/09/17 as noted, continue IVFs, monitor I/Os, continue IV Levaquin given allergies and sensitivities until able to transition to oral regimen. Repeat Bld cx x 2 obtained in the ED. (2) Mild DKA w/ Diabetes mellitus type II: Admission BMP w/ glucose 200s, AG minimally elevated 16, UA w/ + ketones, recently not taking her insulin x 2-3 days. Given mild, will maintain NPO status, will administer 10 u IV insulin x 1, obtain serial BMP x 2, continue aggressive IVFs, obtain q 4 hour accu checks, obtain mag and phos, transition to home regimen, if worsens would initiate insulin drip, nutrition consultation. Encouraged diet and insulin regimen compliance. (3) Hypothyroidism: Continue home synthroid regimen. (4) Morbid Obesity: Weight loss and lifestyle changes encouraged, nutrition consulted. (5) Chronic Pain Syndrome: Notes chronic L hip pain, not on regimen outpatient, encouraged frequent position changes, fall precautions. (6) GERD: Famotidine. (7) DVT Prophylaxis: SCDs, lovenox. Code Visit Inpatient E&M: 92328 Init Hosp L3
--- NOTE | 2017-11-16 21:53 | HP.PCM_ITS ---
Problem List (1) Hip pain, chronic Status: Chronic Qualifiers: Laterality: left Qualified Code(s): M25.552 - Pain in left hip; G89.29 - Other chronic pain (2) Chronic pain Status: Chronic Qualifiers: Chronic pain type: other chronic postprocedural pain Qualified Code(s): G89.28 - Other chronic postprocedural pain (3) Morbid obesity with BMI of 40.0-44.9, adult Status: Chronic (4) Hypothyroidism Status: Chronic Qualifiers: Hypothyroidism type: unspecified Qualified Code(s): E03.9 - Hypothyroidism , unspecified (5) Diabetes mellitus, type II Status: Chronic Qualifiers: Diabetes mellitus fdc insulin use: with termite exterminator use Diabetes mellitus complication status: with unspecified complications Qualified Code(s) : E11.8 - Type 2 diabetes mellitus with unspecified complications; Z79.4 - termite exterminator (current) use of insulin (6) UTI (urinary tract infection) Status: Acute (7) DKA (diabetic ketoacidoses) Status: Chronic Qualifiers: Diabetes mellitus type: type 2 Diabetes mellitus complication detail: without coma Qualified Code(s): E11.10 - Type 2 diabetes mellitus with ketoacidosis without coma History of Present Illness Date of Admission: 11/16/17 Chief Complaint: Intractable N/V, recent UTI, unable to take her medications, not taking her insulin The patient is a 37 y/o F w/ PMHx: Morbid Obesity, Chronic Hip Pain, Diabetes mellitus type II, Hypothyroidism, Frequent UTIs who presents to the [facility] ED on with recent Dx Klebisella UTI/Suspected Pyelonephritis with attempted outpatient treatment oral abx therapy; however, unable to tolerate her medications and noted to have not been able to complete regimen with ongoing nausea, emesis and self admitted failure to take her insulin x 2-3 days secondary to poor oral intake in addition to subjective fevers. In the ED work- up included T 98.1, HR 118, BP 170/115, RR 16, 97% on RA, CBC w/ WBC 11.8, Hgb 13, Plts 416 with L shift, BMP w/ Chl 108, CO2 20, AG 16, BUN/Cr 9/0.50, glucose 237, UA poor sample w/ notable SEC, protein 500, glucose 1000, ketones 150, LE 100, repeat UCx pending although poor sample, Bld Cx per ED pending, CT A/P evident status post cholecystectomy and appendectomy, IVC decreased in caliber and flattened, fat-containing structure right adnexa measuring 1.7 cm consistent with ovarian dermoid, small fat-containing umbilical hernia, left hemipelvis orthopedic hardware, no acute process otherwise noted. In the ED patient administered NS, phenergan, zofran, GI cocktail, morphine, levaquin. Past Medical History Past Medical History (Chronic Problems): Chronic Problems Morbid obesity with BMI of 40.0-44.9, adult (Chronic) Hypothyroidism (Chronic) Diabetes mellitus, type II (Chronic) DKA (diabetic ketoacidoses) (Chronic) Hip pain, chronic (Chronic) Chronic pain (Chronic) Allergies amoxicillin Allergy (Verified 11/16/17 17:40) Hives ciprofloxacin [From Cipro] Allergy (Verified 11/16/17 17:40) Hives ciprofloxacin HCl [From Cipro] Allergy (Verified 11/16/17 17:40) Hives cyclobenzaprine HCl [From Flexeril] Allergy (Verified 11/16/17 17:40) Hives egg Allergy (Verified 11/16/17 17:40) Anaphylaxis WHEN MIXED IN MEDICATION ONLY PER PT REPORT naproxen [From Naprosyn] Allergy (Verified 11/16/17 17:40) Hives tramadol Allergy (Verified 11/16/17 17:40) Rash ketorolac tromethamine [From Toradol] Adverse Reaction (Verified 11/16/17 17:40) Other sulfamethoxazole [From Bactrim] Adverse Reaction (Verified 11/16/17 17:40) Hives trimethoprim [From Bactrim] Adverse Reaction (Verified 11/16/17 17:40) Hives Home Medications: Ambulatory Orders Medication Instructions Recorded Levothyroxine [Synthroid] 125 mcg PO DAILY 10/05/15 Insulin Aspart [Novolog Flexpen] 6 unit SC TID 02/04/16 Insulin Detemir [Levemir (BKC)] 20 units SC QHS 02/04/16 Tizanidine HCl [Zanaflex] 4 mg PO Q8H 10/12/17 ProMETHAzine [Phenergan] 25 mg PO Q6H PRN PRN 11/10/17 ProMETHAzine [Phenergan] 25 mg RECTAL Q6H PRN PRN 11/10/17 Surgical History: appendectomy, cholecystectomy, total hip arthroplasty - left, - - BL eye surgery, D+C. 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 Denies: Chills, Weight Change HEENT: Denies: Head Aches, Sinus Congestion, Sinus Drainage Cardiovascular: Denies: Chest Pain, Palpitations Respiratory: Denies: Cough, Shortness of breath at rest, Sputum production Gastrointestinal: Reports: Abdominal Pain, Nausea, Vomiting Genitourinary: Denies: Dysuria Musculoskeletal: Reports: Back Pain, Joint stiffness, Joint swelling, Joint Tenderness. Denies: Joint Pain Skin: Denies: Rash, Wounds Neurological: Denies: Numbness, Tingling, Focal weakness Psychiatric: Denies: Anxiety, Depression, Homicidal Ideations, Suicidal Ideations Hematologic/ Lymphatic: Denies: Easy Bruising, Easy Bleeding VTE Information - Inpt Only VTE Present on Admission: No VTE Mechan Device Prophylaxis: SCD's VTE Pharm Prophylaxis ordered?: Yes Patient Problems: Active and Suspected Problems UTI (urinary tract infection) (Acute) Subjective: Seated upright in the ED bed, fatigued appearing, NAD otherwise. Objective: Physical Examination: General: awake, alert, oriented x 3 and cooperative, seated upright in the ED bed in no apparent distress. Skin: normal color, turgor, no icterus, cyanosis. HEENT: AT/NC, EOMI, PERRLA, dry MM, no carotid bruits or JVD noted, facial hair present. Lungs: CTA bilaterally, moderate effort, mild decrease BL bases, no rales, ronchi or wheezing. Heart: Tachycardic with regular rhythm; no gallop, rub audible. Abdomen: soft, morbidly obese, mild L sided discomfort to palpation and L CVA TTP, ND, normal BS, no HSM although difficult assessment given habitus. Extremities: no cyanosis, clubbing, or edema. Neurological: patient awake, alert, oriented x 3; cognitive function intact; pupils equally reactive to light and accomodation; cranial nerves II-XII grossly normal, moving all 4 extremities, no focal deficits, strength moderately to severely globally decreased secondary to acute presentation. Psychiatric: affect appears fatigued, no acute evidence of depressive or anxiety feelings. - Physical Exam Vital Signs Temp Pulse Resp BP Pulse Ox 98.1 F 101 H 16 156/94 H 97 11/16/17 17:37 11/16/17 19:43 11/16/17 17:37 11/16/17 19:43 11/16/17 19:43 Oxygen Delivery Method Room Air Weight: 225 lb Body Mass Index (BMI) 41.1 Laboratory Tests Past 24 Hrs 11/16/17 11/16/17 11/16/17 18:30 19:54 19:54 WBC 11.8 H RBC 4.14 L Hgb 13.0 Hct 38.1 MCV 92.0 MCH 31.4 MCHC 34.1 RDW 13.2 RDW Differential 43.6 Plt Count 416 MPV 10.0 Immature Gran % (Auto) 0.700 Neut % (Auto) 85.2 H Lymph % (Auto) 10.0 L [place] % (Auto) 3.5 Eos % (Auto) 0.3 Baso % (Auto) 0.3 Absolute Neuts (auto) 10.1 H Absolute Lymphs (auto) 1.18 Total Counted Not Reportable Sodium 141 Potassium 4.6 Chloride 108 H Carbon Dioxide 20.0 L Anion Gap 16 H BUN 9 Creatinine 0.50 L Estim Creat Clear Calc 123.02 Est GFR (MDRD) Af Amer 177 Est GFR (MDRD) Non-Af 147 BUN/Creatinine Ratio 17.9 Glucose 237 H Calcium 9.0 Urine Color Yellow Urine Clarity Sl. Cloudy Urine pH 6.0 Ur Specific [place] 1.015 Urine Protein 500 H Urine Glucose (UA) 1000 H Urine Ketones 150 H Urine Occult Blood 150 H Urine Nitrite Negative Urine Bilirubin Negative Urine Urobilinogen Normal Ur Leukocyte Esterase 100 H Urine RBC 5-10 SEEN Urine WBC 5-10 SEEN Ur Squamous Epith Cells 10-25 SEEN Amorphous Sediment 1+ URATE Urine Bacteria RARE Urine Mucus 0 SEEN Urine Yeast 1+ Assessment/Plan Active and Suspected Problems UTI (urinary tract infection) (Acute) The patient is a 37 y/o F w/ PMHx: Morbid Obesity, Chronic Hip Pain, Diabetes mellitus type II, Hypothyroidism, Frequent UTIs who presents to the [facility] ED on with recent Dx Giorgi UTI/Suspected Pyelonephritis with attempted outpatient treatment oral abx therapy; however, unable to tolerate her medications and noted to have not been able to complete regimen with ongoing nausea, emesis and self admitted failure to take her insulin x 2-3 days secondary to poor oral intake in addition to subjective fevers. (1) Acute Klebsiella Pneumoniae UTI (Recent ED visit pyelonephritis, no evidence on 11/16/17 CT A/P): UA upon ED evaluation poor sample, UCx 11/09/17 as noted, continue IVFs, monitor I/Os, continue IV Levaquin given allergies and sensitivities until able to transition to oral regimen. Repeat Bld cx x 2 obtained in the ED. (2) Mild DKA w/ Diabetes mellitus type II: Admission BMP w/ glucose 200s, AG minimally elevated 16, UA w/ + ketones, recently not taking her insulin x 2-3 days. Given mild, will maintain NPO status, will administer 10 u IV insulin x 1 , obtain serial BMP x 2, continue aggressive IVFs, obtain q 4 hour accu checks, obtain mag and phos, transition to home regimen, if worsens would initiate insulin drip, nutrition consultation. Encouraged diet and insulin regimen compliance. (3) Hypothyroidism: Continue home synthroid regimen. (4) Morbid Obesity: Weight loss and lifestyle changes encouraged, nutrition consulted. (5) Chronic Pain Syndrome: Notes chronic L hip pain, not on regimen outpatient, encouraged frequent position changes, fall precautions. (6) GERD: Famotidine. (7) DVT Prophylaxis: SCDs, lovenox. Code Visit Inpatient E&M: 55129 Init Hosp L3
[2017-11-16] MEDS: HYDROmorphone 1 MG/ML Syringe 0.5 MG IV (21:57)
[2017-11-16 22:08] VITALS: BP 155/91; PULSE 102; RESP 18; TEMP 37.3; O2SAT 95
[2017-11-16 22:55] VITALS: BP 154/90; PULSE 100; PULSE 104; RESP 18; TEMP 36.9; O2SAT 97; BMI 41.1
[2017-11-16 23:27] LABS: Anion Gap 8 (5-15); BUN 8 mg/dL (7-18); Calcium,Total 8.8 mg/dL (8.5-10.1); Chloride 104 mmol/L (98-107); Creatinine, Serum 0.66 mg/dL (0.55-1.02); EST Glomerular Filtration Rate 107 mL/min (>60); Est Glom Filt Rate - Afr Amer 129 mL/min (>60); Glucose 224 mg/dL (74-106); Magnesium 1.6 mg/dL (1.6-2.6); Phosphorus 2.6 mg/dL (2.5-4.9); Potassium 4.2 mmol/L (3.5-5.1); Sodium Level 138 mmol/L (136-145)
[2017-11-16 23:44] LABS: Hemoglobin A1c 11.2 % (4.2-6.3)
[2017-11-16] MEDS: Famotidine 20 MG Tablet PO (23:50)
[2017-11-16] MEDS: FLUCONAZOLE 150 MG TABLET PO (23:51)
[2017-11-17] VITALS (8 sets, daily range): BP systolic 127–156; BP diastolic 75–88; PULSE 83–90; RESP 16–18; TEMP 36.7–36.8; O2SAT 94–97
[2017-11-17 00:16] LABS: Bedside Glucose 221 mg/dL (70-110)
[2017-11-17] MEDS: 0.9% Normal Saline 1,000 ML 999 ML IV ×2 (00:41→02:44)
[2017-11-17 00:54] LABS: Anion Gap 9 (5-15); BUN 8 mg/dL (7-18); BUN/Creat Ratio 12.2 RATIO (10-20); Calcium,Total 8.5 mg/dL (8.5-10.1); Chloride 104 mmol/L (98-107); Creatinine, Serum 0.65 mg/dL (0.55-1.02); EST Glomerular Filtration Rate 109 mL/min (>60); Est Glom Filt Rate - Afr Amer 131 mL/min (>60); Estimated Creatinine Clearance 94.63 ml/min; Glucose 226 mg/dL (74-106); Potassium 3.6 mmol/L (3.5-5.1); Sodium Level 139 mmol/L (136-145)
[2017-11-17 00:58] LABS: Lactic Acid 1.5 mmol/L (0.4-2.0)
[2017-11-17 02:11] LABS: Bedside Glucose 121 mg/dL (70-110)
[2017-11-17] MEDS: 0.9% Normal Saline 1,000 ML 150 ML IV ×2 (03:45→13:31)
[2017-11-17] MEDS: 0.9% NaCl Peripheral Flush Adult/Peds IV ×4 (03:45→06:44)
[2017-11-17] MEDS: Ondansetron 4 MG/2 ML Vial IV (05:29)
[2017-11-17] MEDS: Levothyroxine 125 MCG Tablet PO (05:37)
[2017-11-17 05:46] LABS: Bedside Glucose 201 mg/dL (70-110)
[2017-11-17] MEDS: Mag Hydrox/Al Hydrox/Simeth 30 ML UDC PO (06:48)
[2017-11-17 07:01] LABS: Bedside Glucose 188 mg/dL (70-110)
[2017-11-17] MEDS: Famotidine 20 MG Tablet PO (09:07)
--- NOTE | 2017-11-17 09:59 | CASEMGMT ---
LOLY MATTHEW ASSESSMENT COMPLETE. LACE Strata 3. Adm Dx: DKA, N/V, UTI The patient is a 37 y/o F w/ PMHx: Morbid Obesity, Chronic Hip Pain, Diabetes mellitus type II, Hypothyroidism, Frequent UTIs who presents to the [facility] ED on 11/16/17 with recent Dx Klebisella UTI/Suspected Pyelonephritis with attempted outpatient treatment oral abx therapy; however, unable to tolerate her medications and noted to have not been able to complete regimen with ongoing nausea, emesis and self admitted failure to take her insulin x 2-3 days secondary to poor oral intake in addition to subjective fevers. The patient is being treated with LYNDA, fluids, IV antiemetics, and pain control. Transition Planning/Care Coordination: LOLY MATTHEW reviewed EMR and notes patient has been to [facility] ED 7x since September 2017 for N/V. LOLY MATTHEW also notes no PCP is listed on chart. LOLY MATTHEW met with patient, who was in bed, sleeping; patient aroused easily and agreed to participate in LOLY MATTHEW assessment, but requested to go back to sleep part way through assessment. The patient reports she does not drive and lives with her parents. The patient reports she does follow with JOVANY Muniz, at [facility]. LOLY MATTHEW asked patient when she last visited her PCP and she couldn't remember. LOLY MATTHEW assessed patient's diabetes management. Per patient, she does have adequate supply of diabetes testing supplies, has a glucometer, and checks her BGL 1x/day. The patient reports she takes both a short acting and long acting insulin and reports she normally takes as prescribed, but hasn't been recently due to feeling sick. LOLY MATTHEW called patient's PA, Bri Romano's office. Per Yue, the patient was last seen 11/05/17 for sore throat. The patient has scheduled and non-showed multiple times this year, and has a 3 month follow-up for diabetes scheduled for 12/21. LOLY MATTHEW referred patient to ED Alena MATTHEW, for care plan assessment due to ED overuse; also inpatient SW, referral to Mal[facility] Cardozo for biopsychosocial assessment due to medication non-adherence and limited support. LOLY MATTHEW will continue to follow hospital course for final transition and care coordination needs. Disposition: Home T. Lepp, BSN, RN-BC, CCM
--- NOTE | 2017-11-17 11:13 | US_ITS ---
STUDY: RENAL ULTRASOUND - COMPLETE REASON FOR EXAM: Female, 37 years old. Left flank pain TECHNIQUE: Ultrasound evaluation of the kidneys was performed with real-time and static putnam-scale imaging. COMPARISON: None. The study is technically limited secondary to patient obesity. FINDINGS: RIGHT KIDNEY: Normal location of the right kidney, which is normal in size. The right kidney measures 11.5 x 5.3 x 3.6 cm. There is a normal cortex of the right kidney. The renal cortex measures 1.6 cm. There is no right renal mass or cyst. There are no right renal calculi. There is no right hydronephrosis. DISTAL RIGHT URETER: There is non-visualization of the distal right ureter. There is no demonstrated right ureterovesical junction calculus. There is a visualized right ureteral jet. LEFT KIDNEY: Normal location of the left kidney, which is normal in size. The left kidney measures 12.4 x 5.3 x 5.6 cm. There is a normal cortex of the left kidney. The renal cortex measures 1.6 cm. There is no left renal mass or cyst. There are no left renal calculi. There is no left hydronephrosis. DISTAL LEFT URETER: There is non-visualization of the distal left ureter. There is no demonstrated left ureterovesical junction calculus. There is a visualized left ureteral jet. AORTA: BLADDER: The distended urinary bladder has a volume of 9 ml. There is a normal wall thickness of the distended urinary bladder. There is no demonstrated mass within the urinary bladder. There are no demonstrated bladder calculi. US/Kidney and Bladder IMPRESSION: Normal ultrasound of the kidneys and urinary bladder. Electronically Signed: Brennon Barney MD at 16:04 EDT , Service support ,
[2017-11-17] MEDS: oxyCODONE 5 MG Tablet PO (11:30)
[2017-11-17 12:31] LABS: Bedside Glucose 205 mg/dL (70-110)
--- NOTE | 2017-11-17 14:02 | PCM.PROGNOTE ---
<Ford Ellis - Last Filed: 11/17/17 14:02> Patient Problems: Active and Suspected Problems UTI (urinary tract infection) (Acute) Subjective: Pt continues to complain of dysuria and BL flank pain L > R. She also is nauseous and vomited a small amount this AM. She refuses to try taking any PO meds and has not eaten. She has no fevers or chills. She also complained of a painful hard spot on her neck in the anterior cervical area and a strep test is pending. She denies sore throat. She was prescribed levaquin as an outpatient but did not take it 2/2 nausea. She also did not take any of her insulin for several days because of nausea. She refused to allow us to draw blood today. - Physical Exam General: Alert, Oriented x3, Cooperative HEENT: Atraumatic, PERRLA, EOMI, Normocephalic, - - she has two small palpable pea size lymph nodes that are tender to palp in the Right anterior cervical position. Her throat is nonerythematous, her tonsils are unremarkable, no plaques noted. Neck: Supple, No JVD, Negative Carotid Bruits, - - fullness. Thyroid unremarkable, no nodules appreciated. Lungs: Clear to auscultation, Normal air movement Cardiovascular: Regular rate, No murmurs Abdomen: Bowel Sounds Present, Soft, Non Tender, Obese, - - Bilateral CVA tenderness L greater than R. Extremities: No edema, Capillary Refill Less than 3 Seconds Skin: No rashes, No breakdown Musculoskeletal: No Tenderness to Palpation of Joints or Extremities Neurological: Cranial nerves II-XII grossly intact Psych/Mental Status: Normal Affect, Agitated, Alert and oriented to time, place, person, mood and affect Vital Signs Temp Pulse Resp BP Pulse Ox 98.1 F 84 16 142/78 H 94 11/17/17 10:10 11/17/17 11:20 11/17/17 10:10 11/17/17 10:10 11/17/17 10:10 Oxygen Delivery Method Room Air Weight: 102 kg Body Mass Index (BMI) 41.1 Intake and Output for Last 24 Hours 11/15/17 11/16/17 11/17/17 23:59 23:59 23:59 Intake Total 3570 / 3570 Output Total 500 / 500 Balance 3070 / 3070 Microbiology Past 72 Hours 11/17/17 12:30 Group A Streptococcus Rapid Screen - Preliminary Mucosa - Throat Laboratory Tests Past 24 Hrs 11/17/17 11/17/17 00:15 00:15 Sodium 139 Potassium 3.6 Chloride 104 Carbon Dioxide 26.0 Anion Gap 9 BUN 8 Creatinine 0.65 Estim Creat Clear Calc 94.63 Est GFR (MDRD) Af Amer 131 Est GFR (MDRD) Non-Af 109 BUN/Creatinine Ratio 12.2 Glucose 226 H Lactic Acid 1.5 Calcium 8.5 POC Glucose 11/17/17 11/17/17 11/17/17 12:25 06:46 05:34 POC Glucose 205 H 188 H 201 H 11/17/17 11/16/17 01:57 23:44 POC Glucose 121 H 221 H Assessment/Plan Active and Suspected Problems UTI (urinary tract infection) (Acute) 1. Acute UTI with pyelonephritis - + dysuria and BL CVA pain and tenderness. CT abdomen neg. Renal US ordered to assess for hydronephrosis. 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 Elevated Leukocytosis, faebrile. Continue levaquin. She has a cipro allergy but has had no reaction to levaquin. 2. DKA/Type 2 DM - mild. Resolved. Pt was off insulin at home. Levemir + SSI. Restart Mealtime insulin when she can tolerate a diet. UA with elevated ketones, glucose, protein, blood. Mag/phos normal. A1C 11.2. 3. Intractable nausea likely 2/2 DKA and UTI/Pyelo. Continue zofran/phenergan 4. Right sided anterior cervical lymphadenopathy - Strep screen is negative. Suspect viral URI. Viral panel is pending. Throat/tonsils are unremarkable 5. Hypothyroidism - thyroid examined given neck complaint - unremarkable. Continue synthroid. 6. Morbid obesity - dietary eval. 7. Chronic pain syndrome - noted as post procedural, at home she is on zanaflex for this. DVT prophylaxis: Lovenox This patient was seen by Ford Ellis PA-C under the supervision of Doctor Duarte. <Héctor Duarte - Last Filed: 11/17/17 15:31> - Physical Exam Vital Signs Temp Pulse Resp BP Pulse Ox 98.2 F 83 16 127/75 H 97 11/17/17 14:20 11/17/17 14:20 11/17/17 14:20 11/17/17 14:20 11/17/17 14:20 Oxygen Delivery Method Room Air Weight: 102 kg Body Mass Index (BMI) 41.1 Intake and Output for Last 24 Hours 11/15/17 11/16/17 11/17/17 23:59 23:59 23:59 Intake Total 3570 / 3570 Output Total 500 / 500 Balance 3070 / 3070 Microbiology Past 72 Hours 11/17/17 11:00 Respiratory Panel (PCR) - Final Mucosa - Nasopharyngeal 11/17/17 12:30 Group A Streptococcus Rapid Screen - Preliminary Mucosa - Throat Laboratory Tests Past 24 Hrs 11/17/17 11/17/17 00:15 00:15 Sodium 139 Potassium 3.6 Chloride 104 Carbon Dioxide 26.0 Anion Gap 9 BUN 8 Creatinine 0.65 Estim Creat Clear Calc 94.63 Est GFR (MDRD) Af Amer 131 Est GFR (MDRD) Non-Af 109 BUN/Creatinine Ratio 12.2 Glucose 226 H Lactic Acid 1.5 Calcium 8.5 POC Glucose 11/17/17 11/17/17 11/17/17 12:25 06:46 05:34 POC Glucose 205 H 188 H 201 H 11/17/17 11/16/17 01:57 23:44 POC Glucose 121 H 221 H Assessment/Plan This patient was seen in conjunction with Ford Ellis PA-C. I have independently interviewed and examined the patient and reviewed pertinent historical, laboratory, and other data. Please refer to Ford Ellis PA-C note for details of this patient's presentation, findings, and recommendations. I have reviewed Ford Ellis PA-C note and concur with documented findings. In brief, patient 37-year-old lady with history of diabetes mellitus type 2 apparently noncompliant with therapy presented with flank pain and assessment of acute pyelonephritis was made admitted to regular nursing floor for further management Physical Examination: GENERAL: cooperative HEENT: Clear conjunctiva, NECK; supple, normal thyroid, CHEST: Diminished to auscultation bilaterally, HEART: Regular S1 S2, no audible murmurs ABDOMEN: soft, non-tender, normoactive bowel sounds, EXTREMITIES: No clubbing, no cyanosis. COGNOS LEAD: Awake, no lateralizing signs. SKIN: No Rash Assessment: 1. Acute pyelonephritis with gram-negative organisms 2. Diabetes mellitus type 2 presented with hyperglycemia 3. Diabetic ketoacidosis; resolved 4. Intractable nausea vomiting suspected to be secondary to gastroparesis 5. Obesity with BMI of 41.1 weight loss advised 6. Hypothyroidism 7. Chronic pain syndrome Recommendations: 1. I have discussed the results of my overview and impressions with the patient 2. Options for management were reviewed Code Visit Inpatient E&M: 15112 Subs Hosp L3
--- NOTE | 2017-11-17 14:14 | PN_ITS ---
<Ford Ellis - Last Filed: 11/17/17 14:02> Patient Problems: Active and Suspected Problems UTI (urinary tract infection) (Acute) Subjective: Pt continues to complain of dysuria and BL flank pain L > R. She also is nauseous and vomited a small amount this AM. She refuses to try taking any PO meds and has not eaten. She has no fevers or chills. She also complained of a painful hard spot on her neck in the anterior cervical area and a strep test is pending. She denies sore throat. She was prescribed levaquin as an outpatient but did not take it 2/2 nausea. She also did not take any of her insulin for several days because of nausea. She refused to allow us to draw blood today. - Physical Exam General: Alert, Oriented x3, Cooperative HEENT: Atraumatic, PERRLA, EOMI, Normocephalic, - - she has two small palpable pea size lymph nodes that are tender to palp in the Right anterior cervical position. Her throat is nonerythematous, her tonsils are unremarkable, no plaques noted. Neck: Supple, No JVD, Negative Carotid Bruits, - - fullness. Thyroid unremarkable, no nodules appreciated. Lungs: Clear to auscultation, Normal air movement Cardiovascular: Regular rate, No murmurs Abdomen: Bowel Sounds Present, Soft, Non Tender, Obese, - - Bilateral CVA tenderness L greater than R. Extremities: No edema, Capillary Refill Less than 3 Seconds Skin: No rashes, No breakdown Musculoskeletal: No Tenderness to Palpation of Joints or Extremities Neurological: Cranial nerves II-XII grossly intact Psych/Mental Status: Normal Affect, Agitated, Alert and oriented to time, place , person, mood and affect Vital Signs Temp Pulse Resp BP Pulse Ox 98.1 F 84 16 142/78 H 94 11/17/17 10:10 11/17/17 11:20 11/17/17 10:10 11/17/17 10:10 11/17/17 10:10 Oxygen Delivery Method Room Air Weight: 102 kg Body Mass Index (BMI) 41.1 Intake and Output for Last 24 Hours 11/15/17 11/16/17 11/17/17 23:59 23:59 23:59 Intake Total 3570 / 3570 Output Total 500 / 500 Balance 3070 / 3070 Microbiology Past 72 Hours 11/17/17 12:30 Group A Streptococcus Rapid Screen - Preliminary Mucosa - Throat Laboratory Tests Past 24 Hrs 11/17/17 11/17/17 00:15 00:15 Sodium 139 Potassium 3.6 Chloride 104 Carbon Dioxide 26.0 Anion Gap 9 BUN 8 Creatinine 0.65 Estim Creat Clear Calc 94.63 Est GFR (MDRD) Af Amer 131 Est GFR (MDRD) Non-Af 109 BUN/Creatinine Ratio 12.2 Glucose 226 H Lactic Acid 1.5 Calcium 8.5 POC Glucose 11/17/17 11/17/17 11/17/17 12:25 06:46 05:34 POC Glucose 205 H 188 H 201 H 11/17/17 11/16/17 01:57 23:44 POC Glucose 121 H 221 H Assessment/Plan Active and Suspected Problems UTI (urinary tract infection) (Acute) 1. Acute UTI with pyelonephritis - + dysuria and BL CVA pain and tenderness. CT abdomen neg. Renal US ordered to assess for hydronephrosis. 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 Elevated Leukocytosis, faebrile. Continue levaquin. She has a cipro allergy but has had no reaction to levaquin. 2. DKA/Type 2 DM - mild. Resolved. Pt was off insulin at home. Levemir + SSI. Restart Mealtime insulin when she can tolerate a diet. UA with elevated ketones , glucose, protein, blood. Mag/phos normal. A1C 11.2. 3. Intractable nausea likely 2/2 DKA and UTI/Pyelo. Continue zofran/phenergan 4. Right sided anterior cervical lymphadenopathy - Strep screen is negative. Suspect viral URI. Viral panel is pending. Throat/tonsils are unremarkable 5. Hypothyroidism - thyroid examined given neck complaint - unremarkable. Continue synthroid. 6. Morbid obesity - dietary eval. 7. Chronic pain syndrome - noted as post procedural, at home she is on zanaflex for this. DVT prophylaxis: Lovenox This patient was seen by Ford Ellis PA-C under the supervision of Doctor Duarte. <Héctor Duarte - Last Filed: 11/17/17 15:31> - Physical Exam Vital Signs Temp Pulse Resp BP Pulse Ox 98.2 F 83 16 127/75 H 97 11/17/17 14:20 11/17/17 14:20 11/17/17 14:20 11/17/17 14:20 11/17/17 14:20 Oxygen Delivery Method Room Air Weight: 102 kg Body Mass Index (BMI) 41.1 Intake and Output for Last 24 Hours 11/15/17 11/16/17 11/17/17 23:59 23:59 23:59 Intake Total 3570 / 3570 Output Total 500 / 500 Balance 3070 / 3070 Microbiology Past 72 Hours 11/17/17 11:00 Respiratory Panel (PCR) - Final Mucosa - Nasopharyngeal 11/17/17 12:30 Group A Streptococcus Rapid Screen - Preliminary Mucosa - Throat Laboratory Tests Past 24 Hrs 11/17/17 11/17/17 00:15 00:15 Sodium 139 Potassium 3.6 Chloride 104 Carbon Dioxide 26.0 Anion Gap 9 BUN 8 Creatinine 0.65 Estim Creat Clear Calc 94.63 Est GFR (MDRD) Af Amer 131 Est GFR (MDRD) Non-Af 109 BUN/Creatinine Ratio 12.2 Glucose 226 H Lactic Acid 1.5 Calcium 8.5 POC Glucose 11/17/17 11/17/17 11/17/17 12:25 06:46 05:34 POC Glucose 205 H 188 H 201 H 11/17/17 11/16/17 01:57 23:44 POC Glucose 121 H 221 H Assessment/Plan This patient was seen in conjunction with Ford Ellis PA-C. I have independently interviewed and examined the patient and reviewed pertinent historical, laboratory, and other data. Please refer to Ford Ellis PA-C note for details of this patient's presentation, findings, and recommendations. I have reviewed Ford Ellis PA-C note and concur with documented findings. In brief, patient 37-year-old lady with history of diabetes mellitus type 2 apparently noncompliant with therapy presented with flank pain and assessment of acute pyelonephritis was made admitted to regular nursing floor for further management Physical Examination: GENERAL: cooperative HEENT: Clear conjunctiva, NECK; supple, normal thyroid, CHEST: Diminished to auscultation bilaterally, HEART: Regular S1 S2, no audible murmurs ABDOMEN: soft, non-tender, normoactive bowel sounds, EXTREMITIES: No clubbing, no cyanosis. 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 SKIN: No Rash Assessment: 1. Acute pyelonephritis with gram-negative organisms 2. Diabetes mellitus type 2 presented with hyperglycemia 3. Diabetic ketoacidosis; resolved 4. Intractable nausea vomiting suspected to be secondary to gastroparesis 5. Obesity with BMI of 41.1 weight loss advised 6. Hypothyroidism 7. Chronic pain syndrome Recommendations: 1. I have discussed the results of my overview and impressions with the patient 2. Options for management were reviewed Code Visit Inpatient E&M: 40953 Subs Hosp L3
--- NOTE | 2017-11-17 16:06 | DS.PCM_ITS ---
<Ford Ellis - Last Filed: 11/17/17 15:53> Discharge Date and Diagnosis Date of Admission: 11/16/17 Date of Discharge: 11/17/17 - Primary Discharge Diagnosis Acute UTI with pyelonephritis Mild DKA T2DM uncontrolled Intractable nausea and vomiting 2/2 UTI/pyelo, possible gastroparesis Hypothyroidism Morbid obesity Chronic pain syndrome Right sided anterior cervical lymphadenopathy unclear etiology - Secondary Discharge Diagnosis Chronic Problems Morbid obesity with BMI of 40.0-44.9, adult (Chronic) Hypothyroidism (Chronic) Diabetes mellitus, type II (Chronic) DKA (diabetic ketoacidoses) (Chronic) Hip pain, chronic (Chronic) Chronic pain (Chronic) Hospital Course and Treatment Imaging Results: 11/17/17 11:13 US Kidney [Kidney and Bladder] [US] Urgent Operations: None Procedures: None Summary of Care Provided: Physical exam on day of discharge: See daily progress note Hospital course: The patient is a 37 year old F who presented to the ER with intractable nausea and vomiting and no PO tolerance. She was recently diagnosed with UTI from klebsiella sensative to levaquin and could not tolerate PO intake so she did not take the keflex or subsequent doxycyline she was prescribed. She had not taken her insulin for several days because she could not eat. She complained of dysuria and BL flank pain L > R. She had leukocytosis, a negative CT of the abdomen, and a urinalysis with protein, glucose, ketones, occult blood, leukocyte eserase, RBCs, WBCs, rare bacteria, and yeast. 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 She Also complained of painful hard spots in her right anterior cervical area. No sore throat and throat and tonsils normal in appearance. She appeared to have two small tender palpable nodes in the anterior cervical region, thyroid was unremarkable. Negative strep test. Respiratory panel negative. The day following admission, after being evaluated, she left AMA. This patient was seen by Ford Ellis PA-C under the supervision of Doctor Duarte. [] Discharge Diet: - - AMA Discharge Activity: - - AMA Home Medications: Medications to take at Discharge Levothyroxine [Synthroid] 125 mcg PO DAILY 10/05/15 Insulin Aspart [Novolog Flexpen] 6 unit SC TID 02/04/16 Insulin Detemir [Levemir ([facility])] 20 units SC QHS 02/04/16 Tizanidine HCl [Zanaflex] 4 mg PO Q8H 10/12/17 ProMETHAzine [Phenergan] 25 mg PO Q6H PRN PRN 11/10/17 ProMETHAzine [Phenergan] 25 mg RECTAL Q6H PRN PRN 11/10/17 Primary Care Physician: Care Physician,No Primary [Primary Care Provider] - Additional Instructions: Patient left AMA Disposition: Against Medical Advice Minutes spent on discharge:: 35 Patient Condition:: Guarded - pt left AMA Meaningful Use Info Meaningful Use Diagnoses (Choose all that apply): None applicable <Héctor Duarte - Last Filed: 11/17/17 17:51> Discharge Date and Diagnosis - Secondary Discharge Diagnosis Chronic Problems Morbid obesity with BMI of 40.0-44.9, adult (Chronic) Hypothyroidism (Chronic) Diabetes mellitus, type II (Chronic) DKA (diabetic ketoacidoses) (Chronic) Hip pain, chronic (Chronic) Chronic pain (Chronic) Hospital Course and Treatment Imaging Results: 11/17/17 11:13 US Kidney [Kidney and Bladder] [US] Urgent Summary of Care Provided: In brief, patient 37-year-old lady with history of diabetes mellitus type 2 apparently noncompliant with therapy presented with flank pain and assessment of acute pyelonephritis was made admitted to regular nursing floor for further management. Patient was treated with antibiotics per protocol she however elected to sign out AGAINST MEDICAL ADVICE just the day after her admission all attempts made her to receiving her decision proved futile. Patient was instructed to present back to the emergency department or to the nearest healthcare facility if she change her mind Time spent on taking care of patient for the day; 45 minutes Code Visit Inpatient E&M: 19617 Disch Hosp
== END 2017-11-17 15:44 | disposition left against medical advice (07) | DRG 321 ==
LOC: ED 18:12 → PCU 22:23
PROVIDERS: Admitting Provider Family Medicine; Emergency Provider Emergency Medicine; Visit Provider Internal Medicine
DX: N10 Acute pyelonephritis (principal); E11.10 Type 2 diabetes mellitus with ketoacidosis without coma; K31.84 Gastroparesis; E03.9 Hypothyroidism, unspecified; Z87.891 Personal history of nicotine dependence; G89.4 Chronic pain syndrome; Z79.4 Long term (current) use of insulin; B96.1 Klebsiella pneumoniae [K. pneumoniae] as the cause of diseases classified elsewhere; R59.0 Localized enlarged lymph nodes
CPT/HCPCS: 36415; 74176; 76770; 80048; 81001; 82962; 83036; 83605; 83735; 84100; 85025; 87040; 87077; 87086; 87088; 87186; 87633; 87880; 97802; 99283; 99406; J7030; J7040; A4216; J2405

== ENCOUNTER 2017-11-29 23:48 | Emergency (ER) | payer MEDICAID, SELFPAY ==
[2017-11-29 23:49] VITALS: BP 165/99; PULSE 129; RESP 24; TEMP 37.1; O2SAT 98; BMI 41.5
--- NOTE | 2017-11-30 00:14 | ED.VISSUMM ---
- ER Visit Summary Date of Service: 11/30/17 Chief Complaint: [] Vomiting and diarrhea History of Present Illness: The patient is a 37 F complaining of vomiting and diarrhea for the last 24 hours. Since then she has had 4 episodes of emesis without blood. She tried Phenergan with minimal relief. She had 6 episodes of loose watery diarrhea. She recently finished antibiotics as an outpatient 4 days ago for urinary tract infection. She had one day in the hospital and then was discharged AGAINST MEDICAL ADVICE. She has had some mild soreness in her left lower back and left-sided abdominal cramps. She recently had a CT abdomen pelvis and ultrasound that showed nothing acute during that admission. Physical Examination: Vital signs reviewed General: Well-nourished well-developed Head: Normocephalic atraumatic Eyes: Pupils equal round and reactive to light extraocular movements intact ENT: TMs clear no hemotympanum no trauma Neck: Nontender full range of motion Cardiovascular: Regular tachycardia with normal rhythm no murmurs normal S1-S2 Respiratory: No distress clear to auscultation bilaterally chest nontender Abdomen: Soft mild tenderness left upper nondistended normal bowel sounds no masses Back: Nontender no CVA tenderness Extremities: Nontender active range of motion ?4 extremities no trauma Skin: Normal color no trauma Neuro alert oriented cranial nerves II through XII intact normal strength sensation reflexes Test Results: [] Emergency Department Course and Treatment: [] She given a dose of IV fluids, Zofran, morphine. Mallory much better after treatment. CBC normal. Chemistries normal except glucose 266. Liver function tests normal except alk phos 156. Lipase negative. Urinalysis shows no evidence of infection. negative. At this time I do not feel the patient has C. difficile colitis. She is resting comfortably. Abdominal exam is quite benign. This could be viral in nature. She will use Imodium and will be given a prescription for Bentyl and Zofran. Will follow-up as an outpatient return if she worsens. I do not feel she needs imaging. Treatment Plan: [] Disposition: [] Impression: [] Abdominal pain Nausea vomiting diarrhea This note was generated with [employer] dictation software. It may contain incorrect words, spelling, and punctuation that were not noted in review of the chart prior to signing ED Disposition - Plan for ED Patient: Chief Complaint: Flank Pain Referrals: [facility] Doctor,Out of [Primary Care Provider] -
[2017-11-30 00:44] LABS: Bacteria 0 SEEN /hpf (None Seen); Mucous, Urine 0 SEEN /hpf (<or=2+); Red Blood Cells-Urine 0 SEEN /hpf (0-5); White Blood Cells 0 SEEN /hpf (0-5)
[2017-11-30 00:46] LABS: Absolute Lymphocyte Count 2.41 X10^3/ul (0.83-4.51); Absolute Neutrophil Count 5.8 X10^3/uL (2.0-7.7); Basophil# 0.05 X10^3/uL; Basophil% 0.6 % (0-1); Eosinophil# 0.18 X10^3/uL; Hematocrit 39.9 % (37-47); Hemoglobin 13.4 g/dl (12.0-15.0); Lymphocyte # 2.41 X10^3/ul (4.0); Lymphocyte % 26.6 % (19-41); Mean Corp Hgb Conc 33.6 g/gl (32-36); Mean Corpuscular Hgb 31.8 pg (27.0-32.0); Mean Corpuscular Volume 94.8 fL (81-99); Mean Platelet Vol. 10.1 fl (6.2-12.0); Monocyte# 0.61 X10^3/uL; Monocyte% 6.7 % (0-10); Neutrophil # 5.79 X10^3/uL (2.7-7.7); POSITIVE COUNT NO; POSITIVE DIFFERENTIAL NO; POSITIVE MORPHOLOGY NO; Platelet Count 380 K/mm3 (150-450); RBC Distribution Width CV 12.9 % (11.6-14.6); RBC Distribution Width SD 43.4 fl (35.1-43.9); Red Blood Count 4.21 M/mm3 (4.2-5.4); White Blood Count 9.1 K/mm3 (4.4-11.0)
[2017-11-30] MEDS: Ondansetron 4 MG/2 ML Vial IV (00:50)
[2017-11-30] MEDS: 0.9% Normal Saline 1,000 ML 1000 ML IV (00:50)
[2017-11-30] MEDS: Morphine 4 MG/ML Syringe IV (00:50)
[2017-11-30 00:51] LABS: Color, Urine Yellow (Yellow); Glucose, Dipstick 1000 mg/dl (Normal); Ketone-Dipstick 5 mg/dl (Negative); Leukocyte Esterase-Dipstick Negative /ul (Negative); Nitrite-Dipstick Negative (Negative); Occult Blood-Urine 10 /ul (Negative); Protein-Dipstick 100 mg/dl (Negative); Urine Bilirubin Dipstick Negative (Negative); Urine Clarity Sl. Cloudy (Clear); Urine Urobilinogen Normal (Normal)
[2017-11-30 00:59] LABS: Squamous Epithelial Cells - UA 0-5 SEEN /hpf (5-10); Yeast-Urine RARE /hpf (None Seen)
[2017-11-30 01:02] LABS: AST(SGOT) 32 U/L (15-37); Alanine Aminotransfer ALT/SGPT 43 U/L (13-56); Albumin, Serum 4.2 g/dL (3.2-5.0); Alkaline Phosphatase 156 U/L (45-117); Anion Gap 13 (5-15); BUN 15 mg/dL (7-18); BUN/Creat Ratio 15.5 RATIO (10-20); Bilirubin, Direct 0.12 mg/dL (0.00-0.30); Calcium,Total 9.4 mg/dL (8.5-10.1); Chloride 104 mmol/L (98-107); Creatinine, Serum 0.97 mg/dL (0.55-1.02); EST Glomerular Filtration Rate 69 mL/min (>60); Est Glom Filt Rate - Afr Amer 83 mL/min (>60); Estimated Creatinine Clearance 63.41 ml/min; Globulin 4.3 g/dL (2.2-4.2); Glucose 266 mg/dL (74-106); Lipase 117 U/L (73-393); Potassium 3.9 mmol/L (3.5-5.1); Protein, Total 8.5 g/dL (6.4-8.2); Sodium Level 140 mmol/L (136-145)
[2017-11-30 01:13] LABS: Pregnancy, Serum, hCG Quali. NEGATIVE Negative (0-9 Nonpreg)
--- NOTE | 2017-11-30 01:27 | ED.DEP ---
ED Disposition - Plan for ED Patient: Disposition: Home or Assisted Living Chief Complaint: Flank Pain Instructions: ED Diet Vomiting Diarrhea Prescriptions: Ondansetron [Zofran Odt] 4 mg PO Q8H PRN PRN #10 tab PRN Reason: Nausea Dicyclomine HCl [Bentyl] 20 mg PO TIDAC #20 cap Referrals: [facility] Doctor,Out of [Primary Care Provider] -
[2017-11-30 01:35] VITALS: RESP 14
== END 2017-11-30 01:42 | disposition home or self-care (01) ==
PROVIDERS: Emergency Provider Emergency Medicine
DX: R10.12 Left upper quadrant pain (principal); R11.2 Nausea with vomiting, unspecified; R19.7 Diarrhea, unspecified; E66.9 Obesity, unspecified; E11.9 Type 2 diabetes mellitus without complications; E03.9 Hypothyroidism, unspecified; Z87.440 Personal history of urinary (tract) infections; Z79.4 Long term (current) use of insulin; Z79.899 Other long term (current) drug therapy
CPT/HCPCS: 80048; 80076; 81001; 83690; 84703; 85025; 96361; 96374; 96375; 99284; J7030; A4216; J2405

== ENCOUNTER 2017-12-08 17:29 | Emergency (ER) | payer MEDICAID, SELFPAY ==
[2017-12-08 17:30] VITALS: BP 120/71; PULSE 100; RESP 16; TEMP 36.4; O2SAT 97; BMI 42.3
--- NOTE | 2017-12-08 17:53 | ED.RN ---
PT STATES I'M SHITTING OUT WORMS
[2017-12-08 19:06] LABS: Absolute Lymphocyte Count 1.83 X10^3/ul (0.83-4.51); Absolute Neutrophil Count 6.6 X10^3/uL (2.0-7.7); Basophil# 0.03 X10^3/uL; Basophil% 0.3 % (0-1); Eosinophil# 0.48 X10^3/uL; Hematocrit 38.8 % (37-47); Hemoglobin 12.9 g/dl (12.0-15.0); Lymphocyte # 1.83 X10^3/ul (4.0); Lymphocyte % 19.2 % (19-41); Mean Corp Hgb Conc 33.2 g/gl (32-36); Mean Corpuscular Hgb 31.1 pg (27.0-32.0); Mean Corpuscular Volume 93.5 fL (81-99); Mean Platelet Vol. 10.3 fl (6.2-12.0); Monocyte# 0.54 X10^3/uL; Monocyte% 5.7 % (0-10); Neutrophil # 6.64 X10^3/uL (2.7-7.7); Neutrophil % 69.5 % (47-70); Platelet Count 296 K/mm3 (150-450); Red Blood Count 4.15 M/mm3 (4.2-5.4); White Blood Count 9.6 K/mm3 (4.4-11.0)
[2017-12-08 19:08] LABS: POSITIVE COUNT NO; POSITIVE DIFFERENTIAL NO; POSITIVE MORPHOLOGY NO
[2017-12-08 19:10] LABS: Mucous, Urine 0 SEEN /hpf (<or=2+)
[2017-12-08 19:22] LABS: AST(SGOT) 22 U/L (15-37); Alanine Aminotransfer ALT/SGPT 30 U/L (13-56); Albumin, Serum 3.7 g/dL (3.2-5.0); Alkaline Phosphatase 125 U/L (45-117); Anion Gap 10 (5-15); BUN 20 mg/dL (7-18); BUN/Creat Ratio 18.5 RATIO (10-20); Calcium,Total 8.6 mg/dL (8.5-10.1); Chloride 103 mmol/L (98-107); Creatinine, Serum 1.08 mg/dL (0.55-1.02); EST Glomerular Filtration Rate 61 mL/min (>60); Est Glom Filt Rate - Afr Amer 74 mL/min (>60); Estimated Creatinine Clearance 56.96 ml/min; Globulin 3.8 g/dL (2.2-4.2); Glucose 462 mg/dL (74-106); Potassium 4.9 mmol/L (3.5-5.1); Protein, Total 7.5 g/dL (6.4-8.2); Sodium Level 132 mmol/L (136-145)
--- NOTE | 2017-12-08 19:23 | ED.RN ---
MD AWARE OF BLOOD SUGAR BEING 462.
[2017-12-08 19:26] LABS: Color, Urine Yellow (Yellow); Glucose, Dipstick 1000 mg/dl (Normal); Ketone-Dipstick 5 mg/dl (Negative); Leukocyte Esterase-Dipstick 500 /ul (Negative); Nitrite-Dipstick Negative (Negative); Occult Blood-Urine 25 /ul (Negative); Protein-Dipstick 15 mg/dl (Negative); Urine Bilirubin Dipstick Negative (Negative); Urine Urobilinogen Normal (Normal)
[2017-12-08 19:27] LABS: Urine Clarity Sl Cldy (Clear)
[2017-12-08 19:28] LABS: Squamous Epithelial Cells - UA 50-100 SEEN /hpf (5-10); White Blood Cells 25-50 SEEN /hpf (0-5)
[2017-12-08] MEDS: Ondansetron ODT 4 MG Tablet PO (19:28)
[2017-12-08] MEDS: Morphine 4 MG/ML Syringe IM (19:28)
[2017-12-08 19:29] LABS: Yeast-Urine 2+ /hpf (None Seen)
[2017-12-08 19:30] LABS: Bacteria 2+ /hpf (None Seen); Red Blood Cells-Urine 0-5 SEEN /hpf (0-5)
--- NOTE | 2017-12-08 19:32 | CT_ITS ---
STUDY: CT ABDOMEN AND PELVIS WITHOUT CONTRAST REASON FOR EXAM: Female, 37 years old. Nausea, vomiting and abdominal pain. RADIATION DOSAGE (If Supplied By Facility): CTDIvol = ( 32.29 ) mGy, DLP = ( 1750.52 ) mGycm TECHNIQUE: Transaxial images were obtained from the dome of the diaphragm to the symphysis pubis without oral contrast, and without intravenous contrast. Sagittal and coronal images were reconstructed. Individualized dose optimization techniques were used for this CT. COMPARISON: Prior abdomen and pelvic CT exam of November 16, 2017 FINDINGS: The visualized lung bases are unremarkable. The visualized portions of the heart are within normal limits. Normal liver. There are surgical clips in the gallbladder fossa consistent with a prior cholecystectomy. Normal spleen. Normal pancreas. Normal bilateral adrenal glands. Normal right kidney. Normal left kidney. Food filled stomach. Normal small intestine. Normal colon. There are surgical clips in the region of the appendix consistent with a prior appendectomy. Minimal calcified plaque of the aorta. Normal inferior vena cava. Normal retroperitoneum. Normal urinary bladder. 1.5 cm fatty nodule of the right ovary unchanged from prior exam. Otherwise negative for pelvic mass or free fluid of the pelvis. Minimal fatty umbilical hernia. Status post hardware repair of a left pelvic fracture stable in appearance from prior exams. CT/Abdomen/Pelvis without Cont IMPRESSION: No acute abdominal findings or changes. Negative for evidence of bowel obstruction, perforation or inflammatory bowel changes. Fluid-filled stomach and proximal small bowel. Status post appendectomy. Normal kidneys bilaterally without hydronephrosis or stones. Unremarkable urinary bladder. 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 Otherwise negative for pelvic mass or free fluid of the pelvis. Electronically Signed: Ciara Barraza MD at 20:49 EDT , Service support ,
--- NOTE | 2017-12-08 21:09 | ED.VISSUMM ---
- ER Visit Summary Date of Service: 12/08/17 Chief Complaint: [Abdominal pain and diarrhea] History of Present Illness: The patient is a 37 F [presents the emergency department with complaint of abdominal pain for the last 5 days. Patient's had diarrhea for the last for 5 days as well as nausea and vomiting for the last couple of days. Patient's thinks that she saw worms in her stool that started 5 days ago. She describes a long white worm as long as a finger. Patient denies eating any undercooked foods. Patient states she was admitted in November to this hospital for a severe UTI and was on antibiotics. Patient denies any blood in her stool. Patient describes pain in the upper left abdomen.] Physical Examination: [HEENT-PERRLA, EOMI. Cranial nerves II through XII grossly intact. TMs clear. Mucous membranes moist. No adenopathy. Cardiovascular-regular rate and rhythm without murmur or ectopy Lungs-clear to auscultation, chest wall stable without crepitus or subcu emphysema Abdomen-normoactive bowel sounds, soft patient has tenderness over the left upper quadrant with some guarding. There is no rebound, rigidity, or peritoneal signs. Extremities-intact ?4, normal range of motion, normal pulses, atraumatic] Test Results: [Urinalysis was a contaminated specimen with 500 leukocyte esterase, 25-50 WBCs, 0-5 RBCs, 50-100 epis. Patient had ordered a stool sample for ova and parasites] as well as C. difficile and enteric pathogens. CBC with differential obtained showed a white count of 9.6, hemoglobin 12.9, hematocrit 39, platelets 296. Chemistries unremarkable. Glucose was elevated 462. LFTs were normal. CT scan of the abdomen and pelvis showed nothing acute. Emergency Department Course and Treatment: [Patient received morphine and Zofran for her pain. Patient was unable to produce a stool sample despite being in the emergency department for more than 3 hours. Patient refused the catheterized urine specimen to be obtained. She understands I cannot rule out a UTI without a good specimen.] Patient received 10 units of insulin subcu. Treatment Plan: [Patient will be discharged to home with a prescription of bring a stool sample and a prescription for mebendazole.] Disposition: [Discharged to home in stable condition] Impression: Abdominal pain Diarrhea-etiology uncertain Hyperglycemia [] This note was generated with Dragon dictation software. It may contain incorrect words, spelling, and punctuation that were not noted in review of the chart prior to signing ED Disposition - Plan for ED Patient: Chief Complaint: Nausea/Vomiting Referrals: [facility] Doctor,Out of [Primary Care Provider] -
[2017-12-08 21:12] VITALS: BP 139/79; PULSE 85; RESP 20; O2SAT 95
--- NOTE | 2017-12-08 21:14 | ED.DEP ---
ED Disposition - Plan for ED Patient: Chief Complaint: Nausea/Vomiting Instructions: ED Vomiting Diarrhea Nonspecific Ad, ED Nausea Vomiting, ED Abdominal Pain Unkn Cause Prescriptions: Ondansetron [Zofran Odt] 4 mg PO Q8H PRN PRN #10 tab PRN Reason: Nausea Mebendazole [Emverm] 100 mg PO BID #6 tab.chew Referrals: [facility] Doctor,Out of [Primary Care Provider] - Bouchra Love MD [STAFF PHYSICIAN] - 3-5 Days
[2017-12-08] MEDS: HYDROcodone Bitartrate/Apap 5/325 Tablet PO (21:28)
== END 2017-12-08 21:31 | disposition home or self-care (01) ==
PROVIDERS: Emergency Provider Emergency Medicine
DX: R10.12 Left upper quadrant pain (principal); R19.7 Diarrhea, unspecified; E11.65 Type 2 diabetes mellitus with hyperglycemia; E03.9 Hypothyroidism, unspecified; Z87.440 Personal history of urinary (tract) infections; Z79.4 Long term (current) use of insulin; Z79.899 Other long term (current) drug therapy
CPT/HCPCS: 74176; 80053; 81001; 85025; 96372; 99285; J7030; A4216

== ENCOUNTER 2017-12-17 18:54 | Emergency (ER) | payer MEDICAID, SELFPAY ==
[2017-12-17 18:55] VITALS: BP 140/88; PULSE 123; RESP 24; TEMP 37.3; O2SAT 99; BMI 41.3
--- NOTE | 2017-12-17 18:59 | EKG12_ITS ---
Test Reason : DIZZY Blood Pressure : / mmHG Vent. Rate : 107 BPM Atrial Rate : 107 BPM P-R Int : 162 ms QRS Dur : 068 ms QT Int : 350 ms P-R-T Axes : 040 -32 081 degrees QTc Int : 467 ms Sinus tachycardia Biatrial enlargement Left axis deviation Inferior infarct , age undetermined Abnormal ECG Confirmed by RUTH DELGADILLO, MIGUEL ([id number]), metropolitan editor DION MCNULTY ([id number]) on 12/21/2017 1:53:26 PM Referred By: DC Confirmed By:MIGUEL MIRANDA MD
--- NOTE | 2017-12-17 19:20 | RAD_ITS ---
STUDY: X-RAY CHEST REASON FOR EXAM: Female, 37 years old. Dizziness TECHNIQUE: PA and lateral COMPARISON: None. FINDINGS: There is nonspecific elevation of right hemidiaphragm.. There appears to be very mild interstitial thickening in the lower lobes but no focal infiltration or gross pulmonary edema There is no demonstrated pleural abnormality. Borderline cardiomegaly. Normal mediastinum and surya. Normal visualized pulmonary arteries. Normal visualized aortic arch and descending thoracic aorta. Normal visualized thoracic spine. Normal visualized ribs, clavicles, and shoulders. Postop changes in the right upper quadrant of the abdomen. RAD/Chest PA and Lateral IMPRESSION: Minor interstitial thickening in the lower lobes but no focal infiltrate or gross pulmonary edema Electronically Signed: Wolf De La Rosa MD at 19:55 EDT , Service support ,
[2017-12-17 21:01] LABS: Bedside Glucose 229 mg/dL (70-110)
[2017-12-17 21:02] LABS: Mucous, Urine 0 SEEN /hpf (<or=2+); Red Blood Cells-Urine 0 SEEN /hpf (0-5)
[2017-12-17 21:03] LABS: Color, Urine Yellow (Yellow); Glucose, Dipstick 1000 mg/dl (Normal); Ketone-Dipstick 15 mg/dl (Negative); Leukocyte Esterase-Dipstick 500 /ul (Negative); Nitrite-Dipstick Positive (Negative); Occult Blood-Urine 250 /ul (Negative); Protein-Dipstick 100 mg/dl (Negative); Urine Bilirubin Dipstick Negative (Negative); Urine Clarity Sl. Cloudy (Clear); Urine Urobilinogen Normal (Normal)
[2017-12-17 21:13] LABS: Bacteria 4+ /hpf (None Seen); Squamous Epithelial Cells - UA 50-100 SEEN /hpf (5-10); White Blood Cells >100 SEEN /hpf (0-5)
[2017-12-17 21:38] LABS: Absolute Lymphocyte Count 2.12 X10^3/ul (0.83-4.51); Absolute Neutrophil Count 7.5 X10^3/uL (2.0-7.7); Basophil# 0.05 X10^3/uL; Basophil% 0.5 % (0-1); Eosinophil# 0.42 X10^3/uL; Eosinophils% 3.9 % (0-5); Hematocrit 41.4 % (37-47); Lymphocyte # 2.12 X10^3/ul (4.0); Lymphocyte % 19.8 % (19-41); Mean Corp Hgb Conc 33.8 g/gl (32-36); Mean Corpuscular Hgb 31.4 pg (27.0-32.0); Mean Corpuscular Volume 92.8 fL (81-99); Mean Platelet Vol. 10.4 fl (6.2-12.0); Monocyte# 0.54 X10^3/uL; Neutrophil # 7.53 X10^3/uL (2.7-7.7); Neutrophil % 70.4 % (47-70); POSITIVE COUNT NO; POSITIVE DIFFERENTIAL NO; POSITIVE MORPHOLOGY NO; Platelet Count 379 K/mm3 (150-450); RBC Distribution Width CV 13.3 % (11.6-14.6); RBC Distribution Width SD 44.6 fl (35.1-43.9); Red Blood Count 4.46 M/mm3 (4.2-5.4); White Blood Count 10.7 K/mm3 (4.4-11.0)
[2017-12-17] MEDS: 0.9% Normal Saline 1,000 ML 1000 ML IV (21:39)
[2017-12-17 21:41] VITALS: BP 156/103; PULSE 114; RESP 26; O2SAT 96
[2017-12-17] MEDS: Meclizine HCl 25 MG Tablet PO (21:42)
[2017-12-17] MEDS: proMETHazine 25 MG/ML Syringe 6.25 MG IV (23:00)
[2017-12-17] MEDS: Morphine 2 MG/ML Syringe IV (23:00)
[2017-12-17 23:01] LABS: Prothrombin Time (Protime)PT. 13.4 SECONDS (11.7-14.9)
[2017-12-17 23:02] LABS: Partial Thromboplast Time 24.9 Seconds (24.1-36.2)
[2017-12-17 23:03] LABS: Anion Gap 14 (5-15); BUN 17 mg/dL (7-18); BUN/Creat Ratio 18.4 RATIO (10-20); Calcium,Total 9.4 mg/dL (8.5-10.1); Chloride 109 mmol/L (98-107); Creatinine, Serum 0.92 mg/dL (0.55-1.02); EST Glomerular Filtration Rate 73 mL/min (>60); Est Glom Filt Rate - Afr Amer 88 mL/min (>60); Estimated Creatinine Clearance 66.86 ml/min; Glucose 237 mg/dL (74-106); Potassium 3.6 mmol/L (3.5-5.1); Sodium Level 139 mmol/L (136-145)
[2017-12-17 23:09] LABS: Pregnancy, Serum, hCG Quali. NEGATIVE Negative (0-9 Nonpreg)
--- NOTE | 2017-12-17 23:50 | ED.VISSUMM ---
- ER Visit Summary Date of Service: 12/17/17 Chief Complaint: Dizziness History of Present Illness: The patient is a 37 F who presents with dizziness that has been intermittent over the past 5 days. Patient describes her dizziness as a spinning sensation. Patient states that symptoms began gradually. Patient does admit to some nausea. Patient denies any headaches. Patient denies any hearing changes. Patient denies any tinnitus. Patient also complains of low back pain and foul-smelling urine. She denies any fevers or chills. Patient denies any nausea or vomiting. Patient is concerned over possible urinary tract infection. Physical Examination: Vital signs are stable except for tachycardia of 123. Patient is in no acute distress. Patient is afebrile. Pupils are equal, round, reactive to light bilaterally. Extraocular muscles are intact. There is nystagmus with right lateral gaze. Oral mucosa is pink and moist. Neck is supple. Heart was regular and tachycardic. Lungs are clear and equal bilateral. Abdomen is soft. Bowel sounds are normal. There is no tenderness. Back exam reveals mild tenderness over the lower lumbar area. There is no bony crepitance or step-off. There is good range of motion. Cranial nerves II through XII are intact. There are no focal motor or sensory deficits noted. Emergency Department Course and Treatment: CBC is within normal limits. Basic metabolic profile was essentially within normal limits. Urinalysis showed evidence of urinary tract infection. Patient was given a dose of meclizine here. Patient states her dizziness has resolved with this. Patient was given morphine and Phenergan for her back pain. Patient was given prescriptions for Macrobid, Pyridium, and meclizine. Patient was instructed to follow-up with her primary care physician in 5-7 days. Patient understood and was agreeable with the plan. All questions were answered. Disposition: Discharge home Impression: Urinary tract infection, vertigo This note was generated with [employer] dictation software. It may contain incorrect words, spelling, and punctuation that were not noted in review of the chart prior to signing ED Disposition - Plan for ED Patient: Disposition: Home or Assisted Living Chief Complaint: Dizziness Diagnosis: UTI (urinary tract infection), Vertigo Instructions: ED Dehydration, ED UTI Cystitis Female Prescriptions: Meclizine HCl 25 mg PO Q8H PRN PRN #20 tab PRN Reason: Dizziness Nitrofurantoin Monohyd/M-Cryst [Macrobid 100 mg Capsule] 100 mg PO BID #14 cap Phenazopyridine HCl [Pyridium] 200 mg PO TID #6 tab Referrals: [facility] Doctor,Out of [Primary Care Provider] -
--- NOTE | 2017-12-18 00:03 | ED.DCSUM_ITS ---
- ER Visit Summary Date of Service: 12/17/17 Chief Complaint: Dizziness History of Present Illness: The patient is a 37 F who presents with dizziness that has been intermittent over the past 5 days. Patient describes her dizziness as a spinning sensation. Patient states that symptoms began gradually. Patient does admit to some nausea. Patient denies any headaches. Patient denies any hearing changes. Patient denies any tinnitus. Patient also complains of low back pain and foul-smelling urine. She denies any fevers or chills. Patient denies any nausea or vomiting. Patient is concerned over possible urinary tract infection. Physical Examination: Vital signs are stable except for tachycardia of 123. Patient is in no acute distress. Patient is afebrile. Pupils are equal, round , reactive to light bilaterally. Extraocular muscles are intact. There is nystagmus with right lateral gaze. Oral mucosa is pink and moist. Neck is supple. Heart was regular and tachycardic. Lungs are clear and equal bilateral. Abdomen is soft. Bowel sounds are normal. There is no tenderness. Back exam reveals mild tenderness over the lower lumbar area. There is no bony crepitance or step-off. There is good range of motion. Cranial nerves II through XII are intact. There are no focal motor or sensory deficits noted. Emergency Department Course and Treatment: CBC is within normal limits. Basic metabolic profile was essentially within normal limits. Urinalysis showed evidence of urinary tract infection. Patient was given a dose of meclizine here. Patient states her dizziness has resolved with this. Patient was given morphine and Phenergan for her back pain. Patient was given prescriptions for Macrobid, Pyridium, and meclizine. Patient was instructed to follow-up with her primary care physician in 5-7 days. Patient understood and was agreeable with the plan. All questions were answered. Disposition: Discharge home Impression: Urinary tract infection, vertigo This note was generated with [email or web address] dictation software. It may contain incorrect words, spelling, and punctuation that were not noted in review of the chart prior to signing ED Disposition - Plan for ED Patient: Disposition: Home or Assisted Living Chief Complaint: Dizziness Diagnosis: UTI (urinary tract infection), Vertigo Instructions: ED Dehydration, ED UTI Cystitis Female Prescriptions: Meclizine HCl 25 mg PO Q8H PRN PRN #20 tab PRN Reason: Dizziness Nitrofurantoin Monohyd/M-Cryst [Macrobid 100 mg Capsule] 100 mg PO BID #14 cap Phenazopyridine HCl [Pyridium] 200 mg PO TID #6 tab Referrals: [facility] Doctor,Out of [Primary Care Provider] -
[2017-12-18 00:07] VITALS: PULSE 115; RESP 14; O2SAT 96
--- NOTE | 2017-12-18 00:09 | NURSING ---
[facility] NOT NEEDED PER DR. ZARCO. ORDER STOPPED.
--- NOTE | 2017-12-18 00:11 | ED.RN ---
DR ZARCO CANCELED [facility]. ORDER PLACED IN TRIAGE.
[2017-12-18] MEDS: Morphine 2 MG/ML Syringe IV (00:16)
[2017-12-18 00:33] VITALS: BP 134/79; PULSE 81; RESP 20; O2SAT 98
--- NOTE | 2017-12-18 00:34 | ED.RN ---
THIS NURSE REVIEWED D/C INSTRUCTIONS WITH PT. PT VERBALIZED UNDERSTANDING OF INSTRUCTIONS. IV D/C. IV CATHETER INTACT. PT TOLERATED WELL. PT DENIES FURTHER NEEDS OR QUESTIONS AT THIS TIME. PT AMBULATES FROM ROOM ON OWN WITHOUT ASSISTANCE FROM STAFF
== END 2017-12-18 00:36 | disposition home or self-care (01) ==
PROVIDERS: Emergency Provider Emergency Medicine
DX: N39.0 Urinary tract infection, site not specified (principal); R42 Dizziness and giddiness
CPT/HCPCS: 36415; 71046; 80048; 81001; 82962; 84703; 85025; 85610; 85730; 93005; 96361; 96374; 96375; 96376; 99285; J7030; A4216

== ENCOUNTER 2017-12-18 11:24 | Inpatient (IN) | payer MEDICAID, SELFPAY ==
[2017-12-18] VITALS (15 sets, daily range): BP systolic 128–174; BP diastolic 64–97; PULSE 97–132; RESP 14–28; TEMP 36.6–37.2; O2SAT 95–98; BMI 33.5; BMI 23.1
[2017-12-18] MEDS: Ondansetron 4 MG/2 ML Vial IV ×2 (11:52→21:41)
[2017-12-18] MEDS: 0.9% Normal Saline 1,000 ML 999 ML IV ×5 (11:53→16:22)
[2017-12-18] MEDS: Morphine 4 MG/ML Syringe IV ×2 (11:53→13:43)
[2017-12-18 12:24] LABS: Absolute Lymphocyte Count 1.85 X10^3/ul (0.83-4.51); Absolute Neutrophil Count 14.8 X10^3/uL (2.0-7.7); Basophil# 0.04 X10^3/uL; Basophil% 0.2 % (0-1); Eosinophil# 0.01 X10^3/uL; Eosinophils% 0.1 % (0-5); Hematocrit 44.1 % (37-47); Hemoglobin 14.8 g/dl (12.0-15.0); Lymphocyte # 1.85 X10^3/ul (4.0); Lymphocyte % 10.7 % (19-41); Mean Corp Hgb Conc 33.6 g/gl (32-36); Mean Corpuscular Hgb 31.4 pg (27.0-32.0); Mean Corpuscular Volume 93.6 fL (81-99); Mean Platelet Vol. 10.6 fl (6.2-12.0); Monocyte% 3.5 % (0-10); Neutrophil # 14.75 X10^3/uL (2.7-7.7); Neutrophil % 85.3 % (47-70); Platelet Count 558 K/mm3 (150-450); RBC Distribution Width CV 13.4 % (11.6-14.6); RBC Distribution Width SD 45.9 fl (35.1-43.9); Red Blood Count 4.71 M/mm3 (4.2-5.4); White Blood Count 17.3 K/mm3 (4.4-11.0)
[2017-12-18 12:25] LABS: POSITIVE COUNT NO; POSITIVE DIFFERENTIAL NO; POSITIVE MORPHOLOGY NO
--- NOTE | 2017-12-18 12:33 | ED.RN ---
PT REFUSING TO HAVE 2ND SET OF BLOOD CULTURES DRAWN. DR. BATRES AWARE.
[2017-12-18 12:35] LABS: Bacteria 0 SEEN /hpf (None Seen); Mucous, Urine 0 SEEN /hpf (<or=2+); White Blood Cells 0 SEEN /hpf (0-5)
[2017-12-18 12:39] LABS: Color, Urine Amber (Yellow); Glucose, Dipstick 1000 mg/dl (Normal); Leukocyte Esterase-Dipstick 100 /ul (Negative); Nitrite-Dipstick Negative (Negative); Occult Blood-Urine 250 /ul (Negative); Protein-Dipstick 500 mg/dl (Negative); Specific Gravity, Urine 1.015 (1.002-1.030); Urine Bilirubin Dipstick Negative (Negative); Urine Clarity Cloudy (Clear); Urine Urobilinogen Normal (Normal)
[2017-12-18 12:41] LABS: Ketone-Dipstick 150 mg/dl (Negative)
[2017-12-18 12:46] LABS: Red Blood Cells-Urine > 100 SEEN /hpf (0-5)
[2017-12-18 12:47] LABS: Squamous Epithelial Cells - UA 25-50 SEEN /hpf (5-10)
[2017-12-18 12:51] LABS: Blood Gas Specimen Type VEN; O2 Delivery Device Room Air; SITE OTHER; Time Given 1244; VBG BASE EXCESS -7 mmol/L (-1.0-3.5); VBG Bicarbonate 17 mmol/L (22-26); VBG Oxygen Content 18 mmol/L (23-33); VBG PO2 62 mmHg (25-40); VBG SO2 92 % (50-70); VBG pCO2 26.5 mmHg (41-51); VBG pH 7.42 (7.32-7.42)
[2017-12-18 13:04] LABS: Anion Gap 20 (5-15); BUN 13 mg/dL (7-18); BUN/Creat Ratio 11.8 RATIO (10-20); Calcium,Total 9.4 mg/dL (8.5-10.1); Chloride 106 mmol/L (98-107); EST Glomerular Filtration Rate 60 mL/min (>60); Est Glom Filt Rate - Afr Amer 72 mL/min (>60); Estimated Creatinine Clearance 71.32 ml/min; Glucose 498 mg/dL (74-106); Potassium 3.6 mmol/L (3.5-5.1); Sodium Level 141 mmol/L (136-145)
[2017-12-18 13:05] LABS: Lactic Acid 5.2 mmol/L (0.4-2.0)
--- NOTE | 2017-12-18 13:27 | ED.VISSUMM ---
- ER Visit Summary Date of Service: 12/18/17 Chief Complaint: Nausea vomiting and UTI History of Present Illness: The patient is a 37 F with a history of diabetes hypothyroidism and frequent UTIs who presents with nausea and vomiting. She states that she was seen last night for flank pain and lightheadedness and dizziness. She was diagnosed with UTI. She states that she had vomiting all night last night with about 15-20 episodes of nonbloody nonbilious emesis. She denies any diarrhea. She complains of lower abdominal pain and bilateral back and flank pain. She did have a CT of the abdomen recently which showed no nephrolithiasis. She was admitted in November for UTI and pyelonephritis but signed out AGAINST MEDICAL ADVICE. She denies fevers. She denies chest pain shortness of breath or cough. She does complain of urinary frequency urgency and foul odor to her urine. Physical Examination: Heart rate 132 vitals otherwise unremarkable Moist mucous membranes Heart regular rhythm tachycardia Lungs are clear I do not appreciate rales rhonchi wheezes Abdomen soft nondistended she does have some suprapubic tenderness. She has bilateral flank/CVA tenderness. Alert Test Results: Laboratory studies notable for white blood cell count 17.3. Glucose is 498. Venous blood gas shows pH 7.42, PCO2 26, PO2 62, bicarbonate 17. Patient does have small acetone. Lactic acid is 5.2. Urinalysis shows greater than 100 RBCs 100 leukocyte esterase. Emergency Department Course and Treatment: Patient was treated with IV fluids and morphine and Zofran for pain. She was given IV Rocephin. With the labs that she had greater than 100 RBCs and no white blood cells on urinalysis today although she did have greater than 100 WBCs on urinalysis yesterday and has symptoms consistent with UTI. We will therefore cover for UTI with IV Rocephin. Given leukocytosis tachycardia and lactic acidosis she would therefore meet definition criteria for septic shock. A 30 cc/kg IV fluid bolus was ordered. Additionally she does have a metabolic acidosis with hyperglycemia and serum ketones which appears consistent with a mild DKA. An insulin drip infusion was ordered. I did speak to the hospitalist regarding admission. They also requested a chest x-ray which is currently pending. Patient will be admitted. Treatment Plan: [] Disposition: Admit Impression: UTI Septic shock DKA This note was generated with Dragon dictation software. It may contain incorrect words, spelling, and punctuation that were not noted in review of the chart prior to signing ED Disposition - Plan for ED Patient: Chief Complaint: Complaint Referrals: [facility],Out of [Primary Care Provider] -
--- NOTE | 2017-12-18 13:33 | RAD_ITS ---
STUDY: X-RAY CHEST REASON FOR EXAM: Female, 37 years old. Cough, pain and nausea. TECHNIQUE: Single AP portable view of the chest. COMPARISON: 12/17/2017. FINDINGS: There again is elevation of the right hemidiaphragm. No focal infiltrate is seen. The lungs are clear and expanded. There is no demonstrated pleural abnormality. Normal size heart. Normal mediastinum and surya. Normal visualized pulmonary arteries. There is atherosclerotic tortuosity of the aortic arch and descending thoracic aorta. The bony structures are unchanged. There is no demonstrated abnormality of the visualized soft tissue structures of the upper abdomen. RAD/Chest 1 View (Portable) IMPRESSION: Elevation of the right hemidiaphragm. No active pulmonary disease. Electronically Signed: Mariano Sharpe MD at 14:13 EDT Tel , Service support ,
[2017-12-18 14:16] LABS: Bedside Glucose 338 mg/dL (70-110)
[2017-12-18 16:05] LABS: Bedside Glucose 235 mg/dL (70-110)
[2017-12-18 16:12] LABS: Reflex Lactate? Y
[2017-12-18 16:26] LABS: Magnesium 1.8 mg/dL (1.6-2.6)
[2017-12-18 16:30] LABS: Anion Gap 14 (5-15); BUN 10 mg/dL (7-18); BUN/Creat Ratio 10.9 RATIO (10-20); Calcium,Total 8.2 mg/dL (8.5-10.1); Chloride 115 mmol/L (98-107); Creatinine, Serum 0.91 mg/dL (0.55-1.02); EST Glomerular Filtration Rate 74 mL/min (>60); Est Glom Filt Rate - Afr Amer 89 mL/min (>60); Glucose 197 mg/dL (74-106); Potassium 3.5 mmol/L (3.5-5.1); Sodium Level 147 mmol/L (136-145)
[2017-12-18] MEDS: oxyCODONE 5 MG Tablet PO ×2 (16:34→21:45)
[2017-12-18] MEDS: proMETHazine 25 MG/ML Syringe 12.5 MG IV (16:34)
[2017-12-18 16:41] LABS: Hemoglobin A1c 10.9 % (4.2-6.3)
[2017-12-18 16:50] LABS: Bedside Glucose 178 mg/dL (70-110)
[2017-12-18] MEDS: 0.9% Normal Saline 1,000 ML 500 ML IV (17:09)
[2017-12-18 17:20] LABS: Lactic Acid 3.3 mmol/L (0.4-2.0)
[2017-12-18 17:39] LABS: M R Staph aureus DNA By PCR Negative (Negative); Probe Check PASS; Specimen Processing Control PASS
[2017-12-18 17:51] LABS: Bedside Glucose 156 mg/dL (70-110)
[2017-12-18] MEDS: Dext 5%-0.45% NS 1,000 ML 200 ML IV (18:32)
[2017-12-18 18:56] LABS: Bedside Glucose 149 mg/dL (70-110)
[2017-12-18 19:21] LABS: Anion Gap 9 (5-15); BUN 9 mg/dL (7-18); BUN/Creat Ratio 14.4 RATIO (10-20); Calcium,Total 7.7 mg/dL (8.5-10.1); Chloride 117 mmol/L (98-107); Creatinine, Serum 0.63 mg/dL (0.55-1.02); EST Glomerular Filtration Rate 114 mL/min (>60); Est Glom Filt Rate - Afr Amer 138 mL/min (>60); Estimated Creatinine Clearance 97.64 ml/min; Glucose 157 mg/dL (74-106); Potassium 3.3 mmol/L (3.5-5.1); Sodium Level 149 mmol/L (136-145)
--- NOTE | 2017-12-18 20:58 | PCM.HP.STD ---
Problem List (1) DKA (diabetic ketoacidoses) Status: Acute Qualifiers: Diabetes mellitus type: type 2 Diabetes mellitus complication detail: without coma Qualified Code(s): E11.10 - Type 2 diabetes mellitus with ketoacidosis without coma (2) UTI (urinary tract infection) Status: Acute Qualifiers: Urinary tract infection type: acute cystitis (3) Diabetes mellitus, type II Status: Chronic Qualifiers: Diabetes mellitus senior care insulin use: with senior care use Diabetes mellitus complication status: with unspecified complications Qualified Code(s): E11.8 - Type 2 diabetes mellitus with unspecified complications; Z79.4 - rn chronic (current) use of insulin (4) Hip pain, chronic Status: Chronic Qualifiers: Laterality: left Qualified Code(s): M25.552 - Pain in left hip; G89.29 - Other chronic pain (5) Hypothyroidism Status: Chronic Qualifiers: Hypothyroidism type: unspecified Qualified Code(s): E03.9 - Hypothyroidism, unspecified (6) Morbid obesity with BMI of 40.0-44.9, adult Status: Chronic History of Present Illness Date of Admission: 12/18/17 Chief Complaint: Nausea / vomiting, dysuria. Patient is a 37 years old female, who was admitted for DKA on 12/18/17. She presents with complaining of nausea, vomiting, and dysuria. She had visited ED with similar complain day before the admission, sent home with antibiotics. She returned with the same complain. UA showed some blood, but no LE or nitrates, WBC were negative. She was found to have BS in 500's, anion gap of 20. WBC was 17, and lactic acid 5.2, however, she is afebrile. Back pain seems to be chronic in nature. Insulin drip was started, Rocephin was given in ED for UTI. She was admitted to ICU. Past Medical History Past Medical History (Chronic Problems): Chronic Problems Morbid obesity with BMI of 40.0-44.9, adult (Chronic) Hypothyroidism (Chronic) Diabetes mellitus, type II (Chronic) Hip pain, chronic (Chronic) Chronic pain (Chronic) Allergies amoxicillin Allergy (Verified 12/18/17 11:25) Hives ciprofloxacin [From Cipro] Allergy (Verified 12/18/17 11:25) Hives ciprofloxacin HCl [From Cipro] Allergy (Verified 12/18/17 11:25) Hives cyclobenzaprine HCl [From Flexeril] Allergy (Verified 12/18/17 11:25) Hives egg Allergy (Verified 12/18/17 11:25) Anaphylaxis WHEN MIXED IN MEDICATION ONLY PER PT REPORT naproxen [From Naprosyn] Allergy (Verified 12/18/17 11:25) Hives tramadol Allergy (Verified 12/18/17 11:25) Rash ketorolac tromethamine [From Toradol] Adverse Reaction (Verified 12/18/17 11:25) Other sulfamethoxazole [From Bactrim] Adverse Reaction (Verified 12/18/17 11:25) Hives trimethoprim [From Bactrim] Adverse Reaction (Verified 12/18/17 11:25) Hives Home Medications: Ambulatory Orders Medication Instructions Recorded Levothyroxine [Synthroid] 125 mcg PO DAILY 10/05/15 Insulin Aspart [Novolog Flexpen] 6 unit SC TID 02/04/16 Insulin Detemir [Levemir (BKC)] 20 units SC QHS 02/04/16 Tizanidine HCl [Zanaflex] 4 mg PO Q8H 10/12/17 proMETHazine tablet [Phenergan] 25 mg PO Q6H PRN PRN 11/10/17 Mebendazole [Emverm] 100 mg PO BID #6 tab.chew 12/08/17 Ondansetron [Zofran Odt] 4 mg PO Q8H PRN PRN #10 tab 12/08/17 Meclizine HCl 25 mg PO Q8H PRN PRN #20 tab 12/17/17 Nitrofurantoin Monohyd/M-Cryst 100 mg PO BID #14 cap 12/17/17 [Macrobid 100 mg Capsule] Phenazopyridine HCl [Pyridium] 200 mg PO TID #6 tab 12/17/17 Surgical History: appendectomy, cholecystectomy, total hip arthroplasty - left, - - BL eye surgery, D+C. Psychiatric History: No pertinent psych hx [employer] History: ectopic Smoking Status: Never smoker - *Family History Maternal History Items: Heart Disease Paternal History Items: Diabetes Review of Systems Comment: ROS: In general: As above. She is afebrile, no chills, night sweats. She is complaining of frequent nausea and vomiting, but no apparent weight loss. HEENT: Unremarkable. Patient denied of any dizziness, chronic headache, blurred vision, double vision, dry mouth, or nasal congestion. CV/respiratory: There is no exertional shortness of breath, chest pain, palpitation, wheezing, cough, claudication, cold feet, or peripheral edema. GI: nausea, vomiting, no diarrhea. : Patient denied any significant urinary symptoms. Neurology: Unremarkable. There is no history of seizure as an adult. Psychological: Unremarkable. ?. Endocrine: Unremarkable. Musculoskeletal: Chronic back pain. VTE Information - Inpt Only VTE Present on Admission: No VTE Mechan Device Prophylaxis: SCD's VTE Pharm Prophylaxis ordered?: Yes Objective: In general, patient is a well-nourished and developed adult. HEENT: Head is atraumatic, and normocephalic. Pupils are equal, round, and reactive to light and accommodations. Neck is supple. There is no lymphadenopathy, or thyromegaly. Oral mucosa is pink, and moist. There are no lesions. Heart: Auscultation is normal with regular rhythm and rate. There is no extra heart sounds, or murmurs. S1 and S2 are present. Point of maximal impulse is not displaced. Lungs: Lungs are clear to auscultation bilaterally. There is no wheezing, or crackles. Abdomen: Abdominal wall is non-tender, and non-distended. There is no palpable mass or organomegaly. Normoactive bowel sounds are present. +back pain. Extremities: There is no cyanosis or clubbing. Peripheral pulses are palpable. There is no edema. Skin: There are no any skin discoloration or lesions. Neurological: CN II - XII are intact. Sensory and motor functions are grossly normal with no obvious deficit. Cerebellar functions are within normal range. Gait was not tested. - Physical Exam Vital Signs Temp Pulse Resp BP Pulse Ox 98.7 F 110 H 19 H 174/88 H 97 12/18/17 20:00 12/18/17 20:00 12/18/17 20:00 12/18/17 20:00 12/18/17 20:00 Oxygen Delivery Method Room Air Weight: 126 lb 1.671 oz Body Mass Index (BMI) 23.1 Finger Stick Blood Glucose 149 Intake and Output for Last 24 Hours 12/16/17 12/17/17 12/18/17 23:59 23:59 23:59 Intake Total 2500 / 2500 Output Total 0 / 0 Balance 2500 / 2500 Laboratory Tests Past 24 Hrs 12/18/17 12/18/17 12/18/17 16:00 16:00 16:00 Sodium 147 H Potassium 3.5 Chloride 115 H Carbon Dioxide 18.0 L Anion Gap 14 BUN 10 Creatinine 0.91 Estim Creat Clear Calc 67.60 Est GFR (MDRD) Af Amer 89 Est GFR (MDRD) Non-Af 74 BUN/Creatinine Ratio 10.9 Glucose 197 H Hemoglobin A1c 10.9 H Lactic Acid Calcium 8.2 L Magnesium 1.8 MRSA (PCR) 12/18/17 12/18/17 12/18/17 16:00 16:49 18:50 Sodium 149 H Potassium 3.3 L Chloride 117 H Carbon Dioxide 23.0 Anion Gap 9 BUN 9 Creatinine 0.63 Estim Creat Clear Calc 97.64 Est GFR (MDRD) Af Amer 138 Est GFR (MDRD) Non-Af 114 BUN/Creatinine Ratio 14.4 Glucose 157 H Hemoglobin A1c Lactic Acid 3.3 H Calcium 7.7 L Magnesium MRSA (PCR) Negative POC Glucose 12/18/17 12/18/17 12/18/17 18:48 17:45 16:40 POC Glucose 149 H 156 H 178 H 12/18/17 12/18/17 15:46 14:11 POC Glucose 235 H 338 H Assessment/Plan Patient is a 37 years old female, who was admitted for DKA on 12/18/17. She presents with complaining of nausea, vomiting, and dysuria. She had visited ED with similar complain day before the admission, sent home with antibiotics. She returned with the same complain. UA showed some blood, but no LE or nitrates, WBC were negative. She was found to have BS in 500's, anion gap of 20. WBC was 17, and lactic acid 5.2, however, she is afebrile. Back pain seems to be chronic in nature. Insulin drip was started, Rocephin was given in ED for UTI. She was admitted to ICU. #1 DKA. Insulin drip and IVF resuscitation. She has history of DM II, and not type I, but she had similar problems in the past. It is possibly that she may not produce enough indigenous insulin. Follow DKA protocol. #2 DM II. Convert SQ insulin when appropriate. Check Hgb A1c #3 Lactic acidosis. Probably due to DKA. IVF resuscitation will be given regardless due to DKA. Trend Lactic acid. Elevated WBC probably due to DKA. She has no other signs and symptoms of infectious process, other than possible acute cystitis. #4 Acute cystitis. UA negative, possibly due to partially treated cystitis with antibiotics from one day prior. Rocephin was started. Continue. #5 Chronic back pain. VTE prophylaxis: heparin SQ. GI prophylaxis: H2 rico po. She is full code. Disposition: home in 1 to 2 days. Code Visit Inpatient E&M: 04790 Subs Hosp L3
[2017-12-18] MEDS: Zolpidem Tartrate 5 MG Tablet PO (21:40)
[2017-12-18] MEDS: 0.9% NaCl Peripheral Flush Adult/Peds IV (21:55)
[2017-12-18 22:11] LABS: Bedside Glucose 230 mg/dL (70-110)
[2017-12-18 22:29] LABS: Internal QC Validated? YES +Cl - CLEAR BKGD; Pregnancy, Urine Negative Negative
[2017-12-18] MEDS: Mag Hydrox/Al Hydrox/Simeth 30 ML UDC PO (23:21)
[2017-12-19] VITALS (15 sets, daily range): BP systolic 147–178; BP diastolic 74–98; PULSE 93–104; RESP 12–21; TEMP 36.7–37; O2SAT 92–97
--- NOTE | 2017-12-19 04:20 | NURSING ---
x2 PIV flush well, but no blood return. Patient refusing to be poked for labs. Dr. Cannon aware.
[2017-12-19] MEDS: Levothyroxine 125 MCG Tablet PO (06:30)
[2017-12-19 08:55] LABS: Bedside Glucose 214 mg/dL (70-110)
[2017-12-19 12:00] LABS: Bedside Glucose 196 mg/dL (70-110)
--- NOTE | 2017-12-19 15:44 | DCINST_ITS ---
You will use the following diet at home:: Calorie/Carbohydrate Controlled ( specify 1200, 1400, etc) - 1600, Cardiac Discharge Activity: Return to Normal Activity Allergies/Adverse Reactions: Allergies amoxicillin Allergy (Verified 12/18/17 11:25) Hives ciprofloxacin [From Cipro] Allergy (Verified 12/18/17 11:25) Hives ciprofloxacin HCl [From Cipro] Allergy (Verified 12/18/17 11:25) Hives cyclobenzaprine HCl [From Flexeril] Allergy (Verified 12/18/17 11:25) Hives egg Allergy (Verified 12/18/17 11:25) Anaphylaxis WHEN MIXED IN MEDICATION ONLY PER PT REPORT naproxen [From Naprosyn] Allergy (Verified 12/18/17 11:25) Hives tramadol Allergy (Verified 12/18/17 11:25) Rash ketorolac tromethamine [From Toradol] Adverse Reaction (Verified 12/18/17 11:25) Other sulfamethoxazole [From Bactrim] Adverse Reaction (Verified 12/18/17 11:25) Hives trimethoprim [From Bactrim] Adverse Reaction (Verified 12/18/17 11:25) Hives Medications to take at Discharge Levothyroxine [Synthroid] 125 mcg PO DAILY 10/05/15 Insulin Aspart [Novolog Flexpen] 6 unit SC TID 02/04/16 Insulin Detemir [Levemir FlexPen] 20 units SC QHS 02/04/16 Tizanidine HCl [Zanaflex] 4 mg PO Q8H 10/12/17 proMETHazine tablet [Phenergan tablet] 25 mg PO Q6H PRN PRN 11/10/17 Mebendazole [Emverm] 100 mg PO BID #6 tab.chew 12/08/17 Ondansetron [Zofran Odt] 4 mg PO Q8H PRN PRN #10 tab 12/08/17 Meclizine HCl 25 mg PO Q8H PRN PRN #20 tab 12/17/17 Nitrofurantoin Monohyd/M-Cryst [Macrobid 100 mg Capsule] 100 mg PO BID #14 cap 12/17/17 Phenazopyridine HCl [Pyridium] 200 mg PO TID #6 tab 12/17/17 Nitrofurantoin Macrocrystals [Macrobid] 100 mg PO Q12 #10 capsule 12/19/17 The following prescriptions were given: Nitrofurantoin Macrocrystals [Macrobid] 100 mg PO Q12 #10 capsule Primary Care Physician: Rosemary Doctor,Out of [Primary Care Provider] - Please follow up with your Primary Care Physician in: Need PCP folow up in 5 to 7 days
--- NOTE | 2017-12-19 16:24 | PCM.DC.SUM ---
Discharge Date and Diagnosis - Problem List Patient Problems: Active and Suspected Problems DKA (diabetic ketoacidoses) (Acute) Date of Admission: 12/18/17 Date of Discharge: 12/19/17 - Primary Discharge Diagnosis Acute cystitis - Secondary Discharge Diagnosis Chronic Problems Morbid obesity with BMI of 40.0-44.9, adult (Chronic) Hypothyroidism (Chronic) Diabetes mellitus, type II (Chronic) Hip pain, chronic (Chronic) Chronic pain (Chronic) Hospital Course and Treatment Imaging Results: Diagnostic Data Chest X-Ray 12/18/17 13:33 IMPRESSION: Elevation of the right hemidiaphragm. No active pulmonary disease. Electronically Signed: Mariano Sharpe MD at 14:13 EDT Tel , Service support , Consultation : None. Operations: None Procedures: None Summary of Care Provided: Patient is a 37 years old female, who was admitted for DKA on 12/18/17. She presents with complaining of nausea, vomiting, and dysuria. She had visited ED with similar complain day before the admission, sent home with antibiotics. She returned with the same complain. UA showed some blood, but no LE or nitrates, WBC were negative. She was found to have BS in 500's, anion gap of 20. WBC was 17, and lactic acid 5.2, however, she is afebrile. Back pain seems to be chronic in nature. Insulin drip was started, Rocephin was given in ED for UTI. She was admitted to ICU. #1 DKA. Insulin drip and IVF resuscitation. She has history of DM II, and not type I, but she had similar problems in the past. It is possibly that she may not produce enough indigenous insulin. Follow DKA protocol. Patient has been refusing to have any testing. last BMP was yesterday at 1600, where AG had normalized. BS has been stable. Patient is requesting to be discharged. OK to discharge, resume macrobid that she received the night before to complete the course for possible UTI. She has no PCP, as she was released from previous provider. Advise her to find PCP as soon as possible. #2 DM II. Convert SQ insulin when appropriate. Check Hgb A1c #3 Lactic acidosis. Probably due to DKA. IVF resuscitation will be given regardless due to DKA. Trend Lactic acid. Elevated WBC probably due to DKA. She has no other signs and symptoms of infectious process, other than possible acute cystitis. #4 Acute cystitis. UA negative, possibly due to partially treated cystitis with antibiotics from one day prior. Rocephin was started. Continue. #5 Chronic back pain. Discharge Diet: 1800 Calorie Control Diet Discharge Activity: Return to Normal Activity Home Medications: Medications to take at Discharge Levothyroxine [Synthroid] 125 mcg PO DAILY 10/05/15 Insulin Aspart [Novolog Flexpen] 6 unit SC TID 02/04/16 Insulin Detemir [Levemir FlexPen] 20 units SC QHS 02/04/16 Tizanidine HCl [Zanaflex] 4 mg PO Q8H 10/12/17 proMETHazine tablet [Phenergan tablet] 25 mg PO Q6H PRN PRN 11/10/17 Mebendazole [Emverm] 100 mg PO BID #6 tab.chew 12/08/17 Ondansetron [Zofran Odt] 4 mg PO Q8H PRN PRN #10 tab 12/08/17 Meclizine HCl 25 mg PO Q8H PRN PRN #20 tab 12/17/17 Nitrofurantoin Monohyd/M-Cryst [Macrobid 100 mg Capsule] 100 mg PO BID #14 cap 12/17/17 Phenazopyridine HCl [Pyridium] 200 mg PO TID #6 tab 12/17/17 Nitrofurantoin Macrocrystals [Macrobid] 100 mg PO Q12 #10 capsule 12/19/17 Following Prescrptions Were Given to Patient: Nitrofurantoin Macrocrystals [Macrobid] 100 mg PO Q12 #10 capsule Primary Care Physician: Rosemary Doctor,Out of [Primary Care Provider] - Please follow up with your Primary Care Physician in: Need PCP folow up in 5 to 7 days Disposition: Home Patient Condition:: Stable Medical Necessity - Tobacco Use Smoking Status: Never smoker Meaningful Use Info Meaningful Use Diagnoses (Choose all that apply): None applicable Code Visit Inpatient E&M: 87713 Disch Hosp
--- NOTE | 2017-12-21 13:00 | CASEMGMT ---
RN CM DC Call. Attempted call. No answer. Lazaro ÁLVAREZN RN AC
== END 2017-12-19 15:50 | disposition home or self-care (01) | DRG 294 ==
LOC: ED 13:49 → ICU 14:26
PROVIDERS: Admitting Provider Hospitalist; Emergency Provider Emergency Medicine; Visit Provider Hospitalist
DX: E11.10 Type 2 diabetes mellitus with ketoacidosis without coma (principal); N30.00 Acute cystitis without hematuria; E87.2 Acidosis; Z79.4 Long term (current) use of insulin; E03.9 Hypothyroidism, unspecified; Z87.440 Personal history of urinary (tract) infections; M25.552 Pain in left hip; M54.9 Dorsalgia, unspecified; G89.29 Other chronic pain; E66.01 Morbid (severe) obesity due to excess calories; Z68.23 Body mass index [BMI] 23.0-23.9, adult; Z79.899 Other long term (current) drug therapy; R42 Dizziness and giddiness
CPT/HCPCS: 36415; 71045; 71046; 80048; 81001; 81025; 82009; 82803; 82962; 83036; 83605; 83735; 84703; 85025; 85610; 85730; 87040; 87077; 87086; 87088; 87186; 87641; 93005; 96361; 96374; 96375; 96376; 97802; 99285; J7030; A4216; J2405; J7799

== ENCOUNTER 2017-12-25 17:13 | Emergency (ER) | payer MEDICAID, SELFPAY ==
[2017-12-25 17:14] VITALS: BP 145/98; PULSE 107; RESP 18; TEMP 36.5; O2SAT 99; BMI 41.0
[2017-12-25 17:44] LABS: Mucous, Urine 0 SEEN /hpf (<or=2+); Red Blood Cells-Urine 0 SEEN /hpf (0-5)
[2017-12-25 17:53] LABS: Color, Urine Yellow (Yellow); Glucose, Dipstick 250 mg/dl (Normal); Ketone-Dipstick 5 mg/dl (Negative); Leukocyte Esterase-Dipstick 100 /ul (Negative); Nitrite-Dipstick Negative (Negative); Occult Blood-Urine 10 /ul (Negative); Protein-Dipstick 30 mg/dl (Negative); Urine Bilirubin Dipstick Negative (Negative); Urine Clarity Sl. Cloudy (Clear); Urine Urobilinogen Normal (Normal)
[2017-12-25 17:55] LABS: Internal QC Validated? YES +Cl - CLEAR BKGD; Pregnancy, Urine Negative Negative
--- NOTE | 2017-12-25 17:56 | ED.DCSUM_ITS ---
- ER Visit Summary Date of Service: 12/25/17 Chief Complaint: UTI History of Present Illness: The patient is a 37 F admitted last week for DKA secondary to UTI. Patient states that she was discharged with 2 bottles of Macrobid. She is completed one bottle states she still has strong odor to her urine and still has dysuria. She reports having fever up to 104 today. She reports having nausea, vomiting, and diarrhea. She reports back pain that has worsened since her admission. Physical Examination: Blood pressure is 145/98, temperature 97.7, heart rate 107 , respiratory rate 18, pulse ox 99% on room air. Patient sitting upright in bed. She is nontoxic appearing. She is in no distress. Head neck examination is normal. Heart is regular rate and rhythm. Lung sounds are clear. Abdomen is soft with mild suprapubic tenderness on exam. There is no guarding or rebound. Test Results: CBC is normal. Chemistry studies reveal glucose of 216. Urinalysis shows 0-5 white blood cells and 10-25 epithelials. Rare bacteria is noted. 250 glucose is noted. Urine patency test is negative. Emergency Department Course and Treatment: Patient was given morphine, Zofran, and IV fluids. On repeat evaluation she is resting comfortably. At this time I have calculated up the antibiotic prescriptions that she was given. It appears that she received a total of 12 day course of Macrobid between the 2 prescriptions. She was encouraged to complete 10 day course and then she could stop the antibiotic. Should be given Zofran for home. She is encouraged to take Tylenol or ibuprofen for pain. She will also try Pyridium which she already has to see if that helps her pain. I do not feel she needs narcotics at this time. Treatment Plan: [] Disposition: Discharge Impression: 1. Recently treated UTI 2. Reported vomiting, improved This note was generated with [employer] dictation software. It may contain incorrect words, spelling, and punctuation that were not noted in review of the chart prior to signing ED Disposition - Plan for ED Patient: Chief Complaint: Complaint Referrals: [facility] Doctor,Out of [NON-STAFF] -
[2017-12-25] MEDS: 0.9% Normal Saline 1,000 ML 150 ML IV (18:12)
[2017-12-25] MEDS: Ondansetron 4 MG/2 ML Vial IV (18:12)
[2017-12-25 18:17] LABS: Absolute Lymphocyte Count 1.96 X10^3/ul (0.83-4.51); Absolute Neutrophil Count 7.4 X10^3/uL (2.0-7.7); Basophil# 0.03 X10^3/uL; Basophil% 0.3 % (0-1); Eosinophil# 0.49 X10^3/uL; Eosinophils% 4.7 % (0-5); Hematocrit 40.6 % (37-47); Hemoglobin 13.3 g/dl (12.0-15.0); Lymphocyte # 1.96 X10^3/ul (4.0); Lymphocyte % 18.7 % (19-41); Mean Corp Hgb Conc 32.8 g/gl (32-36); Mean Corpuscular Hgb 31.7 pg (27.0-32.0); Mean Corpuscular Volume 96.7 fL (81-99); Mean Platelet Vol. 9.9 fl (6.2-12.0); Monocyte# 0.54 X10^3/uL; Monocyte% 5.2 % (0-10); Neutrophil # 7.43 X10^3/uL (2.7-7.7); Neutrophil % 70.9 % (47-70); Platelet Count 366 K/mm3 (150-450); RBC Distribution Width CV 13.7 % (11.6-14.6); RBC Distribution Width SD 47.7 fl (35.1-43.9); White Blood Count 10.5 K/mm3 (4.4-11.0)
[2017-12-25 18:22] LABS: POSITIVE COUNT NO; POSITIVE DIFFERENTIAL NO; POSITIVE MORPHOLOGY NO
[2017-12-25 18:23] LABS: Squamous Epithelial Cells - UA 10-25 SEEN /hpf (5-10); White Blood Cells 0-5 SEEN /hpf (0-5)
[2017-12-25 18:24] LABS: Bacteria RARE /hpf (None Seen); Yeast-Urine RARE /hpf (None Seen)
[2017-12-25 18:38] LABS: Anion Gap 9 (5-15); BUN 19 mg/dL (7-18); BUN/Creat Ratio 24.3 RATIO (10-20); Calcium,Total 9.6 mg/dL (8.5-10.1); Chloride 105 mmol/L (98-107); Creatinine, Serum 0.78 mg/dL (0.55-1.02); EST Glomerular Filtration Rate 88 mL/min (>60); Est Glom Filt Rate - Afr Amer 107 mL/min (>60); Estimated Creatinine Clearance 78.86 ml/min; Glucose 216 mg/dL (74-106); Sodium Level 137 mmol/L (136-145)
[2017-12-25] MEDS: Morphine 4 MG/ML Syringe IV (18:45)
--- NOTE | 2017-12-25 18:50 | ED.DEP ---
ED Disposition - Plan for ED Patient: Disposition: Home or Assisted Living Chief Complaint: Complaint Instructions: ED UTI Cystitis Female, ED Nausea Vomiting Prescriptions: Ondansetron [Zofran Odt] 4 mg PO Q8H PRN PRN #10 tablet PRN Reason: Nausea Referrals: [facility],Out of [NON-STAFF] -
[2017-12-25 19:13] VITALS: BP 154/108; PULSE 87; RESP 16; O2SAT 97
== END 2017-12-25 19:15 | disposition home or self-care (01) ==
PROVIDERS: Emergency Provider Emergency Medicine
DX: N39.0 Urinary tract infection, site not specified (principal); R11.2 Nausea with vomiting, unspecified; E11.9 Type 2 diabetes mellitus without complications; Z87.440 Personal history of urinary (tract) infections; Z79.4 Long term (current) use of insulin; Z79.899 Other long term (current) drug therapy
CPT/HCPCS: 80048; 81001; 81025; 85025; 87086; 87088; 96361; 96374; 96375; 99285; J7030; J2405

== ENCOUNTER 2017-12-31 03:56 | Emergency (ER) | payer MEDICAID, SELFPAY ==
[2017-12-31 03:57] VITALS: BP 155/95; PULSE 108; RESP 20; TEMP 36.4; O2SAT 99; BMI 42.3
[2017-12-31] MEDS: Dicyclomine 10 MG Capsule 20 MG PO (04:13)
--- NOTE | 2017-12-31 04:13 | ED.DCSUM_ITS ---
- ER Visit Summary Date of Service: 12/31/17 Chief Complaint: Abdominal pain and diarrhea History of Present Illness: The patient is a 37 F who has been having abdominal pain and diarrhea. She states she has had this for 2 days. She is cramping on the left side of her abdomen. She has had slight nausea. Her diarrhea has been loose and watery. No urinary symptoms. She was on Macrobid for urinary tract infection last week. Those symptoms have since resolved. She denies any fevers. She has no history of C. difficile. Physical Examination: Vital signs reviewed. HEENT exam unremarkable. Heart is regular rate and rhythm without murmurs. Lungs are clear to auscultation. Abdomen is soft with tenderness in the left lower quadrant. Extremities reveal no edema. Skin exam normal. Neurologic exam normal. Test Results: C. difficile testing is pending Emergency Department Course and Treatment: The patient looks well. She is concerned about the diarrhea, especially after antibiotics. I will give her Bentyl and Flagyl here, as we did discuss the risks and benefits of treatment with Flagyl for possible C. difficile. I gave her options of wait and see if her stool culture does grow C. difficile or we could go ahead and start treatment and when the results come back decided to continue or stop the treatment. She wishes to proceed with treatment. I will give her Flagyl. Bentyl for home. I do not feel she requires any laboratory testing as she looks very well. She has minimal tenderness in the left-hand side which is likely due to the diarrhea. Patient will be discharged Treatment Plan: [] Disposition: Discharge Impression: Abdominal pain, diarrhea, recent antibiotic usage This note was generated with [employer] dictation software. It may contain incorrect words, spelling, and punctuation that were not noted in review of the chart prior to signing ED Disposition - Plan for ED Patient: Chief Complaint: Abd Pain Referrals: NOT,DEFINED [Primary Care Provider] -
--- NOTE | 2017-12-31 04:13 | ED.DEP ---
ED Disposition - Plan for ED Patient: Disposition: Home or Assisted Living Chief Complaint: Abd Pain Instructions: ED Gastroenteritis Report Pend Prescriptions: Dicyclomine HCl [Bentyl] 20 mg PO TIDAC #20 cap Metronidazole [Flagyl] 500 mg PO TID #20 tab Referrals: NOT,DEFINED [Primary Care Provider] -
[2017-12-31] MEDS: metroNIDAZOLE 500 MG Tablet PO (04:14)
[2017-12-31 04:26] VITALS: BP 155/95; PULSE 108; RESP 20; O2SAT 96
== END 2017-12-31 04:27 | disposition home or self-care (01) ==
LOC: ED 04:24
PROVIDERS: Emergency Provider Emergency Medicine
DX: R10.32 Left lower quadrant pain (principal); R19.7 Diarrhea, unspecified; E10.9 Type 1 diabetes mellitus without complications; E03.9 Hypothyroidism, unspecified; Z79.4 Long term (current) use of insulin; Z87.440 Personal history of urinary (tract) infections; Z79.899 Other long term (current) drug therapy
CPT/HCPCS: 99283

== ENCOUNTER 2018-01-07 02:50 | Emergency (ER) | payer MEDICAID, SELFPAY ==
[2018-01-07 02:52] VITALS: BP 123/77; PULSE 80; RESP 16; TEMP 36.1; O2SAT 99; BMI 42.1
[2018-01-07 03:31] LABS: Bedside Glucose 472 mg/dL (70-110)
--- NOTE | 2018-01-07 03:42 | ED.VIS.GEN ---
History of Present Illness Chief Complaint: Eye Problem Informant: Patient Onset: Yesterday Context: Gradual Onset Timing: Continuous Quality: aching pain Location: left eye Current Severity: Moderate Maximum Severity: Moderate Worsened by: nothing Relieved by: nothing Associated Symptoms: blurry vision to point of seeing only light. headache. nausea. Narrative: Patient states she had angle glaucoma several years ago and this feels similar. Does not know if it was closed or open angle. She saw ophthalmology at [facility], and has no local commercial technician. She has no drops or any treatments for this, as she states that it has not been a problem since. She states her blood sugars have been high, in the 270s in the last 2 days. She is a type I diabetic. She uses reading glasses, but otherwise no contacts or glasses otherwise. She denies any injury to her eye, discharge, foreign body sensation, redness. Prior similar symptoms: Yes - Past Medical History (1) Diabetes mellitus, type II Status: Chronic (2) Hypothyroidism Status: Chronic Past Medical History - Allergies and Home Meds Allergies/Adverse Reactions: Allergies amoxicillin Allergy (Verified 01/07/18 02:56) Hives ciprofloxacin [From Cipro] Allergy (Verified 01/07/18 02:56) Hives ciprofloxacin HCl [From Cipro] Allergy (Verified 01/07/18 02:56) Hives cyclobenzaprine HCl [From Flexeril] Allergy (Verified 01/07/18 02:56) Hives egg Allergy (Verified 01/07/18 02:56) Anaphylaxis WHEN MIXED IN MEDICATION ONLY PER PT REPORT naproxen [From Naprosyn] Allergy (Verified 01/07/18 02:56) Hives tramadol Allergy (Verified 01/07/18 02:56) Rash ketorolac tromethamine [From Toradol] Adverse Reaction (Verified 01/07/18 02:56) Other phenazopyridine [From Pyridium] Adverse Reaction (Verified 01/07/18 02:56) Itching sulfamethoxazole [From Bactrim] Adverse Reaction (Verified 01/07/18 02:56) Hives trimethoprim [From Bactrim] Adverse Reaction (Verified 12/31/17 04:09) Hives Home Medications: Home Medications Medication Instructions Recorded Levothyroxine [Synthroid] 125 mcg PO DAILY 10/05/15 Insulin Aspart [Novolog Flexpen] 6 unit SC TID 02/04/16 Insulin Detemir [Levemir FlexPen] 20 units SC QHS 02/04/16 Gabapentin [Neurontin] 600 mg PO TIDCM 01/07/18 Tizanidine HCl [Zanaflex] 6 mg PO PRN PRN 01/07/18 Zolpidem Tartrate [Ambien 5 mg PO QHS PRN PRN 01/07/18 (Generic)] Primary Care Physician: [facility] ,Out of [Primary Care Provider] - Surgical History: appendectomy, cholecystectomy, total hip arthroplasty - left, - - BL eye surgery, D+C. Smoking Status: Never smoker - Family History Maternal Family History: Reports: Heart Disease Paternal Family History: Reports: Diabetes Review of Systems All systems negative except as indicated Eyes: Reports: Visual changes - left - and eye pain Gastrointestinal: Reports: Nausea Neurological: Reports: Headache Physical Exam Vital Signs/Narrative: Vital Signs Temp Pulse Resp BP Pulse Ox 01/07/18 02:52 96.9 F L 80 16 123/77 H 99 General: Well nourished, Well developed, Obese Head: Normocephalic, Atraumatic Eyes: Perrl - no conjunctival injection or chemosis. no discharge. no proptosis or endophthalmos. OS pressure on 3 Tonopen measurements: 24, 27, 28. All with <5% error. no hyphema or hypopyon. no relief of pain w/ tetracaine.`, EOMI - left eye lazy. pt states that is not new., - - no conjunctival injection or chemosis. no discharge. no proptosis or endophthalmos. OS pressure on 3 Tonopen measurements: 24, 27, 28. All with <5% error. no hyphema or hypopyon. no relief of pain w/ tetracaine. ENT: Moist mucous membranes. Negative for: Nasal congestion, Sinus tenderness Neck: Supple, Nontender, No lymphadenopathy Skin: Normal color, No rash Neurological: Alert, Oriented x3, Cranial nerves II-XII grossly intact, Normal Strength, Normal Sensation, Normal Gait Psychological: Normal affect Diagnostic/Tx/Re-eval - Medical Decision Making Dr. Plummer was the on-call commercial technician, with whom I attempted to contact, but after paging, calling house phone, and so we were unable to get a response. The patient did not want to wait anymore, she understood this was why we were not able to disposition her, and understands that her vision is at risk possibly, and I am not comfortable discharging her to home without a recommendation from a specialist. She wishes to leave AGAINST MEDICAL ADVICE, and signed out. She was given follow-up information for ophthalmology, and advised to seek follow-up as soon as possible, or she can return to the ER if she changes her mind. ED Disposition - Plan for ED Patient: Disposition: Against Medical Advice Chief Complaint: Eye Problem Diagnosis: Vision loss, left eye, Hx of glaucoma Instructions: Treating Glaucoma Referrals: Ludy Plummer MD [STAFF PHYSICIAN] - As soon as possible
--- NOTE | 2018-01-07 03:49 | ED.DCSUM_ITS ---
History of Present Illness Chief Complaint: Eye Problem Informant: Patient Onset: Yesterday Context: Gradual Onset Timing: Continuous Quality: aching pain Location: left eye Current Severity: Moderate Maximum Severity: Moderate Worsened by: nothing Relieved by: nothing Associated Symptoms: blurry vision to point of seeing only light. headache. nausea. Narrative: Patient states she had angle glaucoma several years ago and this feels similar. Does not know if it was closed or open angle. She saw ophthalmology at [facility], and has no local corporate human resources manager. She has no drops or any treatments for this, as she states that it has not been a problem since. She states her blood sugars have been high, in the 270s in the last 2 days. She is a type I diabetic. She uses reading glasses, but otherwise no contacts or glasses otherwise. She denies any injury to her eye, discharge, foreign body sensation, redness. Prior similar symptoms: Yes - Past Medical History (1) Diabetes mellitus, type II Status: Chronic (2) Hypothyroidism Status: Chronic Past Medical History - Allergies and Home Meds Allergies/Adverse Reactions: Allergies amoxicillin Allergy (Verified 01/07/18 02:56) Hives ciprofloxacin [From Cipro] Allergy (Verified 01/07/18 02:56) Hives ciprofloxacin HCl [From Cipro] Allergy (Verified 01/07/18 02:56) Hives cyclobenzaprine HCl [From Flexeril] Allergy (Verified 01/07/18 02:56) Hives egg Allergy (Verified 01/07/18 02:56) Anaphylaxis WHEN MIXED IN MEDICATION ONLY PER PT REPORT naproxen [From Naprosyn] Allergy (Verified 01/07/18 02:56) Hives tramadol Allergy (Verified 01/07/18 02:56) Rash ketorolac tromethamine [From Toradol] Adverse Reaction (Verified 01/07/18 02:56) Other phenazopyridine [From Pyridium] Adverse Reaction (Verified 01/07/18 02:56) Itching sulfamethoxazole [From Bactrim] Adverse Reaction (Verified 01/07/18 02:56) Hives trimethoprim [From Bactrim] Adverse Reaction (Verified 12/31/17 04:09) Hives Home Medications: Home Medications Medication Instructions Recorded Levothyroxine [Synthroid] 125 mcg PO DAILY 10/05/15 Insulin Aspart [Novolog Flexpen] 6 unit SC TID 02/04/16 Insulin Detemir [Levemir FlexPen] 20 units SC QHS 02/04/16 Gabapentin [Neurontin] 600 mg PO TIDCM 01/07/18 Tizanidine HCl [Zanaflex] 6 mg PO PRN PRN 01/07/18 Zolpidem Tartrate [Ambien 5 mg PO QHS PRN PRN 01/07/18 (Generic)] Primary Care Physician: [facility] ,Out of [Primary Care Provider] - Surgical History: appendectomy, cholecystectomy, total hip arthroplasty - left, - - BL eye surgery, D+C. Smoking Status: Never smoker - Family History Maternal Family History: Reports: Heart Disease Paternal Family History: Reports: Diabetes Review of Systems All systems negative except as indicated Eyes: Reports: Visual changes - left - and eye pain Gastrointestinal: Reports: Nausea Neurological: Reports: Headache Physical Exam Vital Signs/Narrative: Vital Signs Temp Pulse Resp BP Pulse Ox 01/07/18 02:52 96.9 F L 80 16 123/77 H 99 General: Well nourished, Well developed, Obese Head: Normocephalic, Atraumatic Eyes: Perrl - no conjunctival injection or chemosis. no discharge. no proptosis or endophthalmos. OS pressure on 3 Tonopen measurements: 24, 27, 28. All with <5 % error. no hyphema or hypopyon. no relief of pain w/ tetracaine.`, EOMI - left eye lazy. pt states that is not new., - - no conjunctival injection or chemosis. no discharge. no proptosis or endophthalmos. OS pressure on 3 Tonopen measurements: 24, 27, 28. All with <5% error. no hyphema or hypopyon. no relief of pain w/ tetracaine. ENT: Moist mucous membranes. Negative for: Nasal congestion, Sinus tenderness Neck: Supple, Nontender, No lymphadenopathy Skin: Normal color, No rash Neurological: Alert, Oriented x3, Cranial nerves II-XII grossly intact, Normal Strength, Normal Sensation, Normal Gait Psychological: Normal affect Diagnostic/Tx/Re-eval - Medical Decision Making Dr. Plummer was the on-call corporate human resources manager, with whom I attempted to contact, but after paging, calling house phone, and so we were unable to get a response. The patient did not want to wait anymore, she understood this was why we were not able to disposition her, and understands that her vision is at risk possibly , and I am not comfortable discharging her to home without a recommendation from a specialist. She wishes to leave AGAINST MEDICAL ADVICE, and signed out. She was given follow-up information for ophthalmology, and advised to seek follow-up as soon as possible, or she can return to the ER if she changes her mind. ED Disposition - Plan for ED Patient: Disposition: Against Medical Advice Chief Complaint: Eye Problem Diagnosis: Vision loss, left eye, Hx of glaucoma Instructions: Treating Glaucoma Referrals: Ludy Plummer MD [STAFF PHYSICIAN] - As soon as possible
[2018-01-07] MEDS: Tetracaine 0.5% Ophthalmic Bottle 1 DRP EACH EYE (03:52)
[2018-01-07] MEDS: Ondansetron ODT 4 MG Tablet 8 MG PO (04:17)
--- NOTE | 2018-01-07 06:06 | NURSING ---
BEEN PAGING DR. HARTMAN FOR AN HOUR AND HALF AND STILL NO CALL BACK.
== END 2018-01-07 06:31 | disposition left against medical advice (07) ==
PROVIDERS: Emergency Provider Emergency Medicine
DX: H54.62 Unqualified visual loss, left eye, normal vision right eye (principal); E10.9 Type 1 diabetes mellitus without complications; E03.9 Hypothyroidism, unspecified; Z79.4 Long term (current) use of insulin; Z86.69 Personal history of other diseases of the nervous system and sense organs; Z79.899 Other long term (current) drug therapy
CPT/HCPCS: 82962; 99283

== ENCOUNTER 2018-01-15 13:12 | Emergency (ER) | payer MEDICAID, SELFPAY ==
[2018-01-15 13:12] VITALS: BP 163/101; PULSE 143; RESP 16; TEMP 36.6; O2SAT 97; BMI 41.8
--- NOTE | 2018-01-15 14:09 | ED.VISSUMM ---
- ER Visit Summary Date of Service: 01/15/18 Chief Complaint: [] Acute recurrent abdominal cramps and copious diarrhea for many months History of Present Illness: The patient is a 37 F [] that history for many months states that the stools are whitish she has had prior since evaluation for all the above that of been unremarkable she scheduled to license inspector she thinks next week. She came in because the persistence of the abdominal cramps in the diarrhea. She is able to eat no fevers no cough no blood per rectum but does report she is currently under. It is on time Physical Examination: [] Vitals are within normal range, heart rate 110, clinically she looks well head neck chest unremarkable the abdomen is obese but soft there is no tenderness or guarding organomegaly any area of the back is unremarkable upper lower extremity unremarkable neurologically she is awake moving all 4 clinically she looks well her mucous members are very moist is no signs of dehydration She has had extensive prior tests for this process including a gastric emptying study done recently on the [facility] was unremarkable Test Results: [] Emergency Department Course and Treatment: [] Had ordered IV fluids screening labs etc. IV access is very difficult in this patient due to multiple prior IV sticks the patient became upset about the fact that IV could not be established and she was not going to get IV pain meds and decided to leave AMA I cautioned her about the diagnoses the risk of serious life-threatening complication she voiced understanding the 12th her doctors and return for change in symptoms she clearly was competent and the capacity to make these decisions As noted during her time here she had no vomiting or diarrhea Treatment Plan: [] Disposition: [] Refused ED evaluation when IV could not be started left AMA Impression: [] Reported vomiting and abdominal pain for many months This note was generated with [employer] dictation software. It may contain incorrect words, spelling, and punctuation that were not noted in review of the chart prior to signing ED Disposition - Plan for ED Patient: Disposition: Against Medical Advice Chief Complaint: Diarrhea Referrals: Care Physician,No Primary [Primary Care Provider] -
--- NOTE | 2018-01-15 14:38 | ED.RN ---
pt left ama
== END 2018-01-15 14:39 | disposition left against medical advice (07) ==
PROVIDERS: Emergency Provider Emergency Medicine
DX: R10.9 Unspecified abdominal pain (principal); G89.29 Other chronic pain; R11.10 Vomiting, unspecified; R19.7 Diarrhea, unspecified; Z79.4 Long term (current) use of insulin; Z79.899 Other long term (current) drug therapy
CPT/HCPCS: 99281; J7030; A4216

== ENCOUNTER 2018-01-18 14:51 | Emergency (ER) | payer MEDICAID, SELFPAY ==
[2018-01-18 14:52] VITALS: BP 147/104; PULSE 99; RESP 16; TEMP 36.9; O2SAT 97; BMI 41.8
[2018-01-18 16:09] VITALS: BP 148/90; PULSE 94; RESP 12; O2SAT 95
--- NOTE | 2018-01-18 16:10 | ED.DCSUM_ITS ---
- ER Visit Summary Date of Service: 01/18/18 Chief Complaint: UTI History of Present Illness: The patient is a 37 F with a suspected UTI. She had dark and foul-smelling urine for about the past week. She also reports loose and runny bowel movements with mucus. No blood. Patient was recently admitted at [facility] for dehydration. She has a history of diabetes, DKA, hypothyroidism. No fevers. She does have some left-sided back pain. Physical Examination: Afebrile and vital signs unremarkable except for a blood pressure of 147/104. Patient is sitting upright and appears comfortable. Nontoxic and in no acute distress. Heart regular. Lungs clear. Abdomen soft. Left CVA mildly tender to palpation. Skin appears normal in color. Test Results: Labs, urinalysis, test, C. difficile, and urine culture pending. Emergency Department Course and Treatment: She was treated with IV fluids while awaiting results. She also received Tylenol and Zofran. Laboratory studies were fairly unremarkable. Glucose was 244 and creatinine was 0.54. C. difficile testing is pending. Urine culture is pending. Urinalysis showed signs of UTI. test was negative. Patient will be treated with Levaquin. I believe she is appropriate for outpatient treatment at this time. She has tolerated this before. She may also take Imodium for diarrhea and Zofran for nausea. Stay hydrated. Follow- up with primary care. Treatment Plan: As above Disposition: Discharged Impression: 1. Acute pyelonephritis 2. Diarrheal illness This note was generated with Seeo dictation software. It may contain incorrect words, spelling, and punctuation that were not noted in review of the chart prior to signing ED Disposition - Plan for ED Patient: Chief Complaint: Nausea/Vomiting/Diarrhea Referrals: Care Physician,No Primary [Primary Care Provider] -
[2018-01-18 16:21] LABS: Mucous, Urine 0 SEEN /hpf (<or=2+)
[2018-01-18 16:29] LABS: Color, Urine Yellow (Yellow); Glucose, Dipstick 1000 mg/dl (Normal); Leukocyte Esterase-Dipstick 500 /ul (Negative); Nitrite-Dipstick Negative (Negative); Occult Blood-Urine 250 /ul (Negative); Protein-Dipstick 30 mg/dl (Negative); Urine Clarity Cloudy (Clear); Urine Urobilinogen 1 mg/dl (Normal)
[2018-01-18 16:33] LABS: Urine Bilirubin Dipstick 1 mg/dL (Negative)
[2018-01-18 16:38] LABS: Ketone-Dipstick 150 mg/dl (Negative)
[2018-01-18] MEDS: 0.9% Normal Saline 1,000 ML 1000 ML IV ×2 (16:48→16:49)
[2018-01-18 16:55] LABS: Bacteria 3+ /hpf (None Seen); Red Blood Cells-Urine 50-100 SEEN /hpf (0-5); Squamous Epithelial Cells - UA 0-5 SEEN /hpf (5-10); White Blood Cells 50-100 SEEN /hpf (0-5)
[2018-01-18] MEDS: Acetaminophen 500 MG Tablet 1000 MG PO (16:55)
[2018-01-18] MEDS: Ondansetron ODT 4 MG Tablet PO (16:56)
[2018-01-18 17:14] LABS: Absolute Lymphocyte Count 1.69 X10^3/ul (0.83-4.51); Absolute Neutrophil Count 6.5 X10^3/uL (2.0-7.7); Basophil# 0.03 X10^3/uL; Basophil% 0.3 % (0-1); Eosinophil# 0.29 X10^3/uL; Eosinophils% 3.3 % (0-5); Hematocrit 38.2 % (37-47); Hemoglobin 12.4 g/dl (12.0-15.0); Lymphocyte # 1.69 X10^3/ul (4.0); Lymphocyte % 18.9 % (19-41); Mean Corp Hgb Conc 32.5 g/gl (32-36); Mean Corpuscular Hgb 30.8 pg (27.0-32.0); Mean Corpuscular Volume 94.8 fL (81-99); Monocyte# 0.44 X10^3/uL; Monocyte% 4.9 % (0-10); Neutrophil # 6.46 X10^3/uL (2.7-7.7); Neutrophil % 72.5 % (47-70); Platelet Count 356 K/mm3 (150-450); RBC Distribution Width CV 13.3 % (11.6-14.6); RBC Distribution Width SD 46.1 fl (35.1-43.9); Red Blood Count 4.03 M/mm3 (4.2-5.4); White Blood Count 8.9 K/mm3 (4.4-11.0)
[2018-01-18 17:15] LABS: POSITIVE COUNT NO; POSITIVE DIFFERENTIAL NO; POSITIVE MORPHOLOGY NO
[2018-01-18 17:22] LABS: Anion Gap 12 (5-15); BUN 9 mg/dL (7-18); BUN/Creat Ratio 16.6 RATIO (10-20); Calcium,Total 8.7 mg/dL (8.5-10.1); Chloride 103 mmol/L (98-107); Creatinine, Serum 0.54 mg/dL (0.55-1.02); EST Glomerular Filtration Rate 135 mL/min (>60); Est Glom Filt Rate - Afr Amer 163 mL/min (>60); Estimated Creatinine Clearance 113.91 ml/min; Glucose 244 mg/dL (74-106); Potassium 3.5 mmol/L (3.5-5.1); Sodium Level 139 mmol/L (136-145)
--- NOTE | 2018-01-18 17:27 | CASEMGMT ---
Social Work Note In to speak with pt for multiple admissions. Introduced self and role at [facility]. The pt lives in [place] and drove up to [facility] to be seen today. Pt is abrupt in conversation and only provides one word answers. Confirms that she has a PCP, Dr. Bri Fay. Denies having an appointment scheduled and states she will see what is going on this time if she needs to follow-up. Also reports that she has an endocronologist in [place] that she has not seen in several month. Encourage the pt to follow-up with each provider upon discharge as her visits to the ED are frequent and could be managed by outpatient providers. Pt denies access issues. She is unemployed, but denies financial concerns. Denies mental health diagnoses and denies substance abuse hx. During assessment pt asks if SW can get her nurse as she is, in quite a bit of pain despite resting in bed in no apparent distress as evidenced by watching television and exhibiting no nonverbal communication of pain. Pt denies further needs at this time. Chart to be reviewed for further EDCP development. Indy Alvares, SENIOR STAFF PSYCHOLOGIST, LODGE ATTENDANT
[2018-01-18 17:37] LABS: Pregnancy, Serum, hCG Quali. NEGATIVE Negative (0-9 Nonpreg)
[2018-01-18 18:05] VITALS: BP 115/76; PULSE 90; RESP 12; O2SAT 94
--- NOTE | 2018-01-18 18:12 | ED.DEP ---
ED Disposition - Plan for ED Patient: Chief Complaint: Nausea/Vomiting/Diarrhea Instructions: Discharge Instructions for Pyelonephritis Prescriptions: Loperamide [Imodium] 2 mg PO Q4H PRN PRN #20 cap PRN Reason: Diarrhea Ondansetron [Zofran Odt] 4 mg PO Q8H PRN PRN #10 tab PRN Reason: Nausea levoFLOXacin tablet [Levaquin tablet] 750 mg PO DAILY 4 Days #4 tab Referrals: Bouchra Love MD [STAFF PHYSICIAN] -
[2018-01-18] MEDS: proMETHazine 25 MG/ML Syringe 6.25 MG IV (18:26)
[2018-01-18] MEDS: levoFLOXacin 750 MG Tablet PO (18:54)
[2018-01-18 18:55] VITALS: BP 143/82; PULSE 72; O2SAT 99
--- NOTE | 2018-03-01 15:44 | CM.ED ---
Social Work Note Pt's EDCP mailed out 02/25/18. Pt contacted SW and left vm requesting a return phone call for an explanation. Returned pt's phone call and she inquires, So you wanna explain this to me. Explain to the pt that Care Plans are developed by a team of multidisciplinary professionals when individuals have a high number of visits, which are typically around 4 within 3 months. Explain that the pt has had 14 in 5 months. She states that she did not sign this. Inform that this is not voluntary, and although we cannot force the pt to comply, the plan is to aide her in the management of her healthcare needs by ensuring that our staff manage her presenting problem in a consistent manner. She inquires what the resources for a psychiatrist are for. Explain that resources provided with the care plan are outlets that may also aide in her chronic concerns and review that n/v is one of them and that this sometimes is caused by anxiety. Educate that she does not have to follow-up with a mental health professional, but that it is encouraged because it has proven to help with management of her presenting symptoms. Pt becomes upset as evidenced by a raised voice and states that you're all making decisions about a person without talking to them. Inform that pt that our staff has spoke with her and identified the resources she has in place. Again educate that this is not voluntary and our staff is following legal guidelines by still evaluating and treating her, but she will be referred to the appropriate specialists for chronic illnesses. Pt states that she thinks she needs to contact a labeling specialist and hangs up. [place] report was run this date and pt has received 66 scripts for controlled substances since 09/2016 from 25 different providers, and fills these prescriptions within 7 different pharmacies. Indy Alvares, CURRICULUM CONSULTANT, FRAMER
--- NOTE | 2018-04-07 15:13 | CM.ED ---
Social Work Note Pt had left a vm for SW 04/06/18 in the afternoon. Returned call today. Pt states that she contacted Beba Bass and she did not seem to know what she was talking about. Informed that SW had contacted Beba following out last conversation. Pt inquires how to get EDCP lifted and inform that they are reviewed yearly to see if any updates or changes need to be made. States that she will need to get legal involved them. Discuss with the pt that if she chooses to do that she may. Inquire what her concern with the plan is and pt begins to ask SW, have you ever broken a hip or a pelvis. Deny this to which the pt responds that SW probably don't know what real pain is then. Inform that if the pt were to return to our ED she would still receive a medical evaluation and would be treated for verifiable concerns. 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 Beba Bass made aware of phone conversation. Indy Alvares, SUBSTATION OPERATOR CONVERSION, BOX TOE CEMENTER
== END 2018-01-18 18:59 | disposition home or self-care (01) ==
LOC: ED 16:14
PROVIDERS: Emergency Provider Emergency Medicine
DX: N10 Acute pyelonephritis (principal); R19.7 Diarrhea, unspecified; E11.9 Type 2 diabetes mellitus without complications; E03.9 Hypothyroidism, unspecified; Z87.891 Personal history of nicotine dependence; Z79.4 Long term (current) use of insulin; Z79.899 Other long term (current) drug therapy
CPT/HCPCS: 80048; 81001; 84703; 85025; 87086; 87088; 87186; 87493; 96361; 96374; 99285; J7030